=== PATIENT | male | born 1980 | race African-American/Black ===

== ENCOUNTER 2021-11-23 12:37 | Emergency (ER) | payer OTHER, SELFPAY ==
[2021-11-23 12:44] VITALS: BP 104/80; PULSE 96; RESP 18; TEMP 36.7; O2SAT 100; BMI 32.5
--- NOTE | 2021-11-23 13:09 | ED_ITS ---
HPI - General Adult General Chief complaint: Psychiatric Symptoms Stated complaint: cirsis Time Seen by Provider: 11/23/21 13:09 Source: patient Mode of arrival: ambulatory Limitations: no limitations History of Present Illness HPI narrative: Patient is a 41 year old male presenting to the emergency department today expressing he is not being taken care of appropriately at the [facility]. Patient states that the staff is baiting him into verbal arguments and not taking him to his appointments. Patient denies any dizziness, lightheadedness, abdominal pain, nausea, vomiting, fever, chills, blurry vision, double vision, loss of vision, chest pain, difficulty breathing, shortness of breath, back pain, night sweats, pain with urination, increased urinary frequency, increased urinary urgency, blood in his urine or stool, syncope or a near syncopal episode, recent trauma or falls, bowel incontinence, bladder incontinence, bowel retention, bladder retention, or any other complaints at this time. Patient denies any homicidal or suicidal ideation. Onset (ago): week(s) Severity: mild Severity scale (1-10): 1 Relieving factors: none Exacerbating factors: none Associated symptoms: denies other symptoms Treatments prior to arrival: none Related Data Home Medications Medication Instructions Recorded Confirmed insulin lispro 100 unit/mL subcut 07/30/21 10/19/21 subcutaneous solution (Humalog U-100 Insulin) methadone 10 mg/mL oral concentrate 65 mg PO DAILY 07/30/21 10/19/21 Previous Rx's Medication Instructions Recorded clonidine HCl 0.2 mg tablet 0.2 mg PO TID PRN anxiety 30 days 07/30/21 #90 tabs escitalopram oxalate 20 mg tablet 20 mg PO DAILY 30 days #30 tabs 07/30/21 gabapentin 800 mg tablet 800 mg PO TID 30 days #90 tabs 07/30/21 insulin glargine 100 unit/mL (3 40 unit (0.4 mL) subcut BEDTIME 30 07/30/21 mL) subcutaneous pen (Lantus days #12 mL Solostar U-100 Insulin) insulin lispro 100 unit/mL 14 unit (0.14 mL) subcut TID 30 07/30/21 subcutaneous pen (Humalog KwikPen days #12.6 mL (U-100) Insulin) mupirocin 2 % topical ointment 1 appl topical TID 10 days #08/14/21 grams clonazepam 1 mg tablet 1 mg PO BID PRN anxiety 30 days 10/22/21 #60 tabs dextroamphetamine-amphetamine ER 25 mg PO BID 30 days #60 caps 10/22/21 25 mg 24hr capsule,extend release (Adderall XR) ibuprofen 600 mg tablet 600 mg PO Q6H PRN pain 30 days 10/29/21 #120 tabs Allergies Allergy/AdvReac Type Severity Reaction Status Date / Time buprenorphine [From Suboxone] Allergy Mild Swelling Verified 10/19/21 13:30 naloxone [From Suboxone] Allergy Mild Swelling Verified 10/19/21 13:30 Review of Systems Constitutional: Constitutional: Reports no additional constitutional complaints, Denies chills, Denies fever(s) and Denies night sweats Eyes: Eyes: Reports no additional eye complaints, Denies blurry vision, Denies change in vision, Denies diplopia, Denies eye discharge, Denies loss of vision and Denies eye pain ENT: Denies dizziness Cardiovascular: Cardiovascular: Reports no additional cardiovascular complaints, Denies chest pain, Denies lightheadedness, Denies Loss of Consciousness and Denies dyspnea Respiratory: Respiratory: Reports no additional respiratory complaints and Denies dyspnea Gastrointestinal: Gastrointestinal: Reports no additional gastrointestinal complaints, Denies abdominal pain, Denies melena, Denies hematochezia, Denies change in bowel habits and Denies change in stool character Genitourinary: Genitourinary: Reports no additional male genitourinary complaints, Denies hematuria, Denies oliguria, Denies difficulty urinating, Denies dysuria, Denies urinary frequency, Denies urinary hesitancy, Denies urina ry incontinence and Denies urinary urgency Musculoskeletal: Musculoskeletal: Reports no additional musculoskeletal complaints, Denies numbness and Denies tingling Neurologic: Denies dizziness, Denies loss of vision, Denies numbness and Denies tingling Psychiatric: Psychiatric: Reports no additional psychiatric complaints Endocrine: Endocrine: Reports no additional endocrine complaints Hematologic/Lymphatic: Hematologic/Lymphatic: Reports no additional hematologic/lymphatic complaints Allergic/Immunologic: Allergic/Immunologic: Reports no additional allergic/immunologic complaints PMFSH Past Medical History Attestation statement: The following information was validated with the patient. Source: old records reviewed Medical History ADD (attention deficit disorder) Anxiety Diabetes mellitus Diabetic neuropathy Obesity (BMI 30-39.9) Opioid use disorder Smoker Surgical History H/O knee surgery Family History Family History Mother No problems noted. Father Diabetes Parkinson disease Other Mental health problem Substance abuse Social History Social History Housing: Assisted Living Facility Alcohol intake: unknown Patient Tobacco Use Status: Current everyday Tobacco user Cigarettes Per Day: 6 Smoked in Last 30 Days: No e-Cigarette/Vaping Use: Never Used Second Hand Smoke Exposure: Yes Advance Directives: No Advance Directives Information Provided: Yes service: No Current occupational status: disabled Cognitive needs: No Hearing needs: No Vision needs: Yes Physical Exam ED Vital Signs: Vital Signs - 24 hr 11/23/21 12:44 Temperature 98.1 F Pulse Rate 96 Respiratory Rate 18 Blood Pressure 104/80 Pulse Oximetry 100 Oxygen Delivery Method Room Air BMI result Body Mass Index 32.5 Const General: cooperative, no acute distress, alert and awake Nutritional Appearance: well nourished Orientation/consciousness: patient oriented x3 Limitations: no limitations HENMT Head: Yes normal to inspection and Yes atraumatic Ears: hearing grossly normal bilaterally and external ears normal General nose exam: Normal external nose present, no nasal discharge noted and no epistaxis Face and sinus: Yes normal facial exam, No abrasion and No laceration Mouth: Normal oral and palatal mucosa present, no drooling and no muffled voice Eyes General: appearance normal, both eyes and all related structures Periorbital: periorbital findings normal Eyelids: Yes eyelids normal Conjunctivae: conjunctivae normal Pupils: Equal, round and reactive pupils present EOM: EOMs intact bilaterally Neck Neck: Yes normal visual inspection, Yes full ROM and Yes no lymphadenopathy Chest Chest palpation & inspection: normal inspection of the chest Resp Effort & Inspection: normal respiratory effort and able to speak in complete sentences Auscultation: clear to auscultation bilaterally Cardio Rate: regular rate Rhythm: regular rhythm GI Inspection: Yes normal to inspection Neuro General: patient oriented x3 and moves all extremities Cranial nerves: Yes Equal, round and reactive pupils present Cognition (Neuro): normal cognition Motor exam (neuro): 5/5 motor strength present throughout Sensory Exam: Normal double simultaneous stimulation for sensation Coordination: [id number] test normal Extrem General: Yes normal to inspection, Yes full ROM and Yes capillary refill normal Psych Appearance: grossly normal Mental Status: mental status grossly normal Affect: normal affect Attitude: cooperative Thought process: Normal thought process present Thought content: Normal thought content present Insight: Good insight present (Psych) Medical Decision Making MDM Narrative Medical decision making narrative: Patient is a 41 year old male presenting to the emergency department today requesting placement elsewhere from the [facility]. Patient's physical exam was unremarkable. Patient refused to give a urine sample. I explained my physical exam findings to the patient. I answered all questions asked by the patient. CARE team spoke to the patient and together, they decided his best course of action currently is to go back to the [facility]. I stressed the importance of the patient taking his medication as prescribed. I stressed the importance of the patient following up with his primary care provider. I stressed the importance of the patient returning to the emergency department immediately if his symptoms were to worsen or if he were to develop any dizziness, shortness of breath, difficulty breathing, chest pain, blurry vision, loss of vision, nausea, vomiting, abdominal pain, fever, chills, back pain, or any other complaints. Patient verbalized agreement and understanding with this treatment plan and discharge. Medical Records Medical records reviewed: Yes I reviewed the patient's medical records. Discharge Plan Discharge Clinical Impression: Emotional crisis Patient Disposition: Home, Self-Care Instructions: Stress (ED) Additional Instructions: Follow up with your primary care provider. Return to the emergency department immediately if your symptoms worsen or if you develop any dizziness, shortness of breath, difficulty breathing, chest pain, blurry vision, loss of vision, nausea, vomiting, abdominal pain, fever, chills, back pain, or any other complaints. Prescriptions: No Action clonazepam 1 mg tablet 1 mg PO BID PRN (Reason: anxiety) 30 Days Qty: 60 0RF dextroamphetamine-amphetamine [Adderall XR] 25 mg capsule,extended release 24hr 25 mg PO BID 30 Days Qty: 60 0RF Rx Instructions: Partial Fill upon patient request ibuprofen 600 mg tablet 600 mg PO Q6H PRN (Reason: pain) 30 Days Qty: 120 2RF Rx Instructions: Take with food insulin lispro [Humalog U-100 Insulin] 100 unit/mL solution subcut clonidine HCl 0.2 mg tablet 0.2 mg PO TID PRN (Reason: anxiety) 30 Days Qty: 90 3RF escitalopram oxalate 20 mg tablet 20 mg PO DAILY 30 Days Qty: 30 3RF gabapentin 800 mg tablet 800 mg PO TID 30 Days Qty: 90 2RF Lantus Solostar U-100 Insulin 100 unit/mL (3 mL) insulin pen 40 unit subcut BEDTIME 30 Days Qty: 12 3RF insulin lispro [Humalog KwikPen Insulin] 100 unit/mL insulin pen 14 unit subcut TID 30 Days Qty: 12.6 3RF Rx Instructions: dose 3 times a day with meals per sliding scale methadone 10 mg/mL concentrate 65 mg PO DAILY Label Comments: [facility] mupirocin 2 % ointment 1 appl topical TID 10 Days Qty: 22 1RF Referrals: Lucas Wu MD [Primary Care Provider] - Interventions: ED Discharge Assessment Last Done: 11/23/21 17:04 Discharge Date/Time: 11/23/21 17:19 Print Language: Egyptian
--- NOTE | 2021-11-23 16:30 | PC.NURSE ---
Pt continues to refuse to provide UA/SINCLAIR for screening-Adeline from Care team to eval.
--- NOTE | 2021-11-23 17:06 | MHC.CARE ---
CARE Team meets with pt after receiving a consult, siting that pt is requesting a new placement. Pt states that he came to [facility] today from his PCP office in order to request assistance in finding a new placement. [facility] where he has been for the past 5 months. He identifies that he has been sober for a year and is in [facility] for support with mental health, sobriety, and setting up resources so he can live independently in the community. He is originally from the [facility]. Pt is not initially forthcoming with information, however eventually reports that he is getting kicked out of the [facility] on 12/06/21. Pt identifies that he has a [facility] worker who has offered him a new program, but he was hesitant to take it because the program is primarily for [place]ritre[place] speakers. CARE Team engages pt in solution focused intervention to use community resources available to him, such as the living room, as pt was initially refusing to return to the senior care. Pt was asked by nurse in triage and by Pod nurse if he was feeling suicidal and denied. In response to CARE Team saying they cannot immediately change pt's program, he endorsed SI, saying he could overtake his insulin with very vague intent. Prior to making this statement pt was goal focused and future oriented, talking about regaining custody of his children. When asked, pt confirms that he made SI statement in the hopes of being psychiatrically admitted so they can change his program. CARE Team educated pt that dual programs have long waitlists and there could be a gap between this program and the next if he does not work with DM to tranfer to the program he is being told is available. Suicidality is in the context of uncertainty surrounding housing. CARE Team places call to the [facility] who agrees that pt can and should return to their program and they agree to send staff to pick pt up. CARE Team educates pt about community crisis services, offering [facility] crisis line, which pt confirms he already has access to. Pt also provides education about program such as the living room in the event that pt needs supports/resources outside of his current program and [facility]. CARE Team discusses plan for discharge with SHANTAL Chilel.
== END 2021-11-23 17:19 | disposition home or self-care (01) ==
PROVIDERS: Emergency Provider Student in an Organized Health Care Education/Training Program; PCP Internal Medicine
DX: F43.0 Acute stress reaction (principal); Z79.899 Other long term (current) drug therapy
CPT/HCPCS: 99284

== ENCOUNTER → 2021-11-30 14:37 | Outpatient (BNVA) | payer OTHER, SELFPAY | PROVIDERS: PCP Internal Medicine; Referring Provider Internal Medicine; Visit Provider Surgery | DX: K43.9 Ventral hernia without obstruction or gangrene (principal); E66.9 Obesity, unspecified; F11.90 Opioid use, unspecified, uncomplicated; F98.8 Other specified behavioral and emotional disorders with onset usually occurring in childhood and adolescence; E10.40 Type 1 diabetes mellitus with diabetic neuropathy, unspecified; F17.210 Nicotine dependence, cigarettes, uncomplicated; Z68.31 Body mass index [BMI] 31.0-31.9, adult | CPT/HCPCS: 99202 ==

== ENCOUNTER 2021-12-06 17:09 | Inpatient (IN) | payer OTHER, SELFPAY ==
--- NOTE | ~2021-12-06 | XR_ITS ---
EXAMINATION: XR CHEST CLINICAL INFORMATION: Leukocytosis COMPARISON: None TECHNIQUE: Frontal view of the chest was obtained. FINDINGS: No significant abnormality is noted involving the heart, lungs, mediastinum, bony thorax or soft tissues. XR/XR chest 1V IMPRESSION: Unremarkable examination.
[2021-12-06 17:35] VITALS: BP 131/94; PULSE 111; RESP 19; TEMP 36.6; O2SAT 98; BMI 31.8
--- NOTE | 2021-12-06 18:11 | PC.NURSE ---
Clonazepam, methadone, and adderall sealed in envelope and placed in pt locker. Plan is to send to pharmacy should pt become a bedsearch. Fiona relief charge nurse aware.
--- NOTE | 2021-12-06 18:14 | ECG_ITS ---
Test Reason : med clearance Blood Pressure : / mmHG Vent. Rate : 074 BPM Atrial Rate : 074 BPM P-R Int : 182 ms QRS Dur : 092 ms QT Int : 416 ms P-R-T Axes : 037 048 027 degrees QTc Int : 461 ms Normal sinus rhythm Normal ECG No previous ECGs available Referred By: Aleksandra Choudhary Electronically Signed By:AREN GOMEZ
--- NOTE | 2021-12-06 18:35 | ED_ITS ---
HPI - Psych General Chief Complaint: Psychiatric Symptoms Stated Complaint: section 12 Time Seen by Provider: 12/06/21 17:39 Source: patient Mode of arrival: ambulatory History of Present Illness HPI Narrative: 41-year-old male with a past medical history of ADD, anxiety, diabetes, diabetic neuropathy, obesity, opioid use, presenting to ED complaining of increasing depression with suicidal ideations and plan x months. Will not specify plan. Admits to using cocaine today. States he is unhappy with his current living situation & staff members are mean/degrade him, and do not give him his medications properly. Also reports auditory hallucinations. Denies HI, visual hallucinations, EtOH, CP/SOB, abdominal pain MD complaint: suicidal ideation, feels depressed, substance abuse and hallucinations Onset (ago): month(s) Related Data Home Medications Medication Instructions Recorded Confirmed insulin lispro 100 unit/mL 1 sliding scale dose subcut TIDAC 07/30/21 12/06/21 subcutaneous solution (Humalog U-100 Insulin) methadone 10 mg/mL oral concentrate 65 mg PO DAILY 07/30/21 11/30/21 ibuprofen 600 mg tablet 600 mg PO Q6H PRN Pain, Mild 12/06/21 12/06/21 Previous Rx's Medication Instructions Recorded escitalopram oxalate 20 mg tablet 20 mg PO DAILY 30 days #30 tabs 07/30/21 insulin glargine 100 unit/mL (3 40 unit (0.4 mL) subcut BEDTIME 30 07/30/21 mL) subcutaneous pen (Lantus #12 mL Solostar U-100 Insulin) dextroamphetamine-amphetamine ER 25 mg PO BID 30 days #60 caps 10/22/21 25 mg 24hr capsule,extend release (Adderall XR) clonazepam 1 mg tablet 1 mg PO BID PRN anxiety 30 days 11/27/21 #60 tabs gabapentin 800 mg tablet 800 mg PO TID 30 days #90 tabs 11/27/21 clonidine HCl 0.2 mg tablet 0.2 mg PO TID PRN anxiety 30 days 12/04/21 #90 tabs Allergies Allergy/AdvReac Type Severity Reaction Status Date / Time buprenorphine [From Suboxone] Allergy Mild Swelling Verified 11/30/21 14:43 naloxone [From Suboxone] Allergy Mild Swelling Verified 11/30/21 14:43 Review of Systems Review of Systems: Constitutional: No Fever, No Chills, No Fatigue, No Malaise ENT/Mouth: No Ear Pain, No Nasal Congestion, No sore throat, No Rhinorrhea, No Swallowing Difficulty Eyes: No Eye Pain, No Swelling, No Redness Cardiovascular: No Chest Pain, No SOB, No Edema, No Palpitations Respiratory: No Cough, No Dyspnea Gastrointestinal: No Nausea, No Vomiting, No Diarrhea, No Constipation, No Abdominal pain Genitourinary: No Dysuria, No Urinary Frequency, No Hematuria Musculoskeletal: No joint pain, No Myalgias, No Joint Swelling Skin: No Skin Lesions, No rash Neuro: No Weakness, No Numbness, No Paresthesias, No Headache Psych: No Anxiety/Panic, + Depression, + SI, No HI, +AHVH, + Social Issues Yes all other systems are reviewed and are negative Constitutional: Constitutional: Reports as per [facility] Past Medical History Attestation statement: The following information was validated with the patient. Medical History ADD (attention deficit disorder) Anxiety Diabetes mellitus Diabetic neuropathy Obesity (BMI 30-39.9) Opioid use disorder Smoker Surgical History H/O knee surgery Family History Family History Mother No problems noted. Father Diabetes Parkinson disease Other Mental health problem Substance abuse Social History Social History Housing: Assisted Living Facility Alcohol intake: unknown Patient Tobacco Use Status: Current everyday Tobacco user Cigarettes Per Day: 6 e-Cigarette/Vaping Use: Never Used Second Hand Smoke Exposure: Yes Advance Directives: No Advance Directives Information Provided: Yes service: No Current occupational status: disabled Cognitive needs: No Hearing needs: No Vision needs: Yes Physical Exam Vital Signs: Vital Signs: Last Vital Signs Temp 98 F 12/06/21 17:35 Pulse 90 12/06/21 19:58 Resp 16 12/06/21 19:58 BP 97/66 12/06/21 19:58 Pulse Ox 95 12/06/21 19:58 O2 Del Method 12/06/21 19:58 BMI result Body Mass Index 31.8 Const: General: cooperative, comfortable and no acute distress Orientation/consciousness: patient oriented x3 Limitations: no limitations HEENT: Head: Yes normal to inspection and Yes atraumatic Ears: hearing grossly normal bilaterally General nose exam: Normal external nose present Face and sinus: Yes normal facial exam Eyes: General: appearance normal, both eyes and all related structures EOM: EOMs intact bilaterally Neck: Neck: Yes normal visual inspection and Yes no meningeal signs Resp: Effort & Inspection: normal respiratory effort and no respiratory distress Auscultation: clear to auscultation bilaterally, no rales, no rhonchi and no wheezes Cardio: Rate: regular rate and tachycardic Heart sounds: S1 normal heart sound present and S2 normal heart sound present GI: Inspection: Yes normal to inspection Palpation (GI): Soft to palpation, nontender, no guarding and not rigid : General: Yes no CVA tenderness Back/Spine/Pelvis: Back: no CVA tenderness Skin: Rashes: no rashes Wounds: no wounds Neuro: General: patient oriented x3, tone normal, moves all extremities, no meningeal signs and CN's II-XI intact bilaterally Gait exam (Neuro): Normal gait present Extrem: General: Yes normal to inspection Psych: Appearance: grossly normal and well kempt Affect: normal affect Attitude: cooperative Thought process: Normal thought process present Thought content: Suicidality present, Hallucination(s) present and Depressive thoughts present Course Course Course Narrative: -leukocytosis of 14.6 > will obtain CXR and UA. Low suspicion for severe sepsis, no evidence of infection at this time. Labs otherwise unremarkable -2011--CXR unremarkable. Patient is medically cleared for crisis evaluation. Physician observation initiated at 20:12 -2100--ED care transferred to Dr. Ramos pending UA and crisis eval. MDM - Psych MDM Narrative Medical decision making narrative: 41-year-old male with a past medical history of ADD, anxiety, diabetes, diabetic neuropathy, obesity, opioid use, presenting to ED complaining of increasing depression with suicidal ideations and plan x months. On exam mildly tachycardic, NAD, comfortable, nontoxic appearing, lungs CTA, abdomen soft/nontender. Elicit suicidal ideations with vague plan and AH. Concern for substance abuse vs SI. Lower suspicion for infectious etiology Plan: EKG, Labs, tox screen, crisis consult Differential Diagnosis Differential diagnosis: Likely suicidal ideation, depression, acute anxiety and substance abuse Medical Records Attestation: I reviewed the patient's medical records. Lab Data Attestation: I reviewed the patient's lab results. Result diagrams: 12/06/21 18:32 12/06/21 18:32 Labs: Lab Results 12/06/21 12/06/21 12/06/21 Range/Units 18:32 18:32 18:32 WBC 14.6 H (4.8-10.8) X10*3/uL RBC 5.01 (4.60-5.80) X10*6/uL Hgb 13.9 L (14.0-18.0) g/dl Hct 41.8 L (42.0-52.0) % MCV 83.4 (80.0-98.0) fL MCH 27.7 (27.0-33.0) pg MCHC 33.3 (31.0-36.0) g/dl RDW 12.4 (11.0-16.0) % Plt Count 401 H (160-400) X10*3/uL MPV 10.1 (9.4-12.4) fL Immature Gran % (Auto) 0.3 (0.0-0.4) % Neut % (Auto) 79.8 H (45-73) % Lymph % (Auto) 15.7 L (20-40) % [place] % (Auto) 3.6 (2-11) % Eos % (Auto) 0.3 (0-4) % Baso % (Auto) 0.3 (0-2) % Lymph # (Auto) 2.3 (1.2-4.9) X10*3/uL [place] # (Auto) 0.5 (0.1-1.2) X10*3/uL Eos # (Auto) 0.0 (0.0-0.4) X10*3/uL Baso # (Auto) 0.1 (0.0-0.2) X10*3/uL Abs Immat Gran (auto) 0.04 H (0.00-0.03) X10*3/uL Absolute Neuts (auto) 11.6 H (2.0-8.3) x10*3/uL Absolute Nucleated RBC 0.000 (0.0-0.012) X10*3/uL Nucleated RBC % (auto) 0.0 (0.0-0.2) /100WBC Sodium 138 (135-145) mmol/L Potassium 4.8 (3.3-5.1) mmol/L Chloride 102 (96-108) mmol/L Carbon Dioxide 24 (22-29) mmol/L Anion Gap 17 (12-20) BUN 15 (9-16) mg/dL Creatinine 1.17 (0.5-1.4) mg/dL Estim Creat Clear Calc 105.8 Estimated GFR > 60 Random Glucose 124 H (60-115) mg/dL Calcium 10.1 (8.4-10.2) mg/dL Magnesium 1.9 (1.6-2.6) mg/dL Total Bilirubin 0.2 (0.0-1.0) mg/dL Direct Bilirubin < 0.2 (0.0-0.5) mg/dL AST 24 (5-37) U/L ALT 24 (0-40) U/L Alkaline Phosphatase 120 H (39-117) U/L Total Protein 8.0 (6.5-8.0) g/dL Albumin 4.4 (3.5-5.0) g/dL Ethyl Alcohol < 10 mg/dL COVID-19 ([facility]NAZ) Negative (Negative) COVID-19 Clin Com See Note Discharge Plan Discharge Clinical Impression: Suicidal ideations Patient Disposition: Still a Patient Prescriptions: No Action dextroamphetamine-amphetamine [Adderall XR] 25 mg capsule,extended release 24hr 25 mg PO BID 30 Days Qty: 60 0RF Rx Instructions: Partial Fill upon patient request clonazepam 1 mg tablet 1 mg PO BID PRN (Reason: anxiety) 30 Days Qty: 60 0RF gabapentin 800 mg tablet 800 mg PO TID 30 Days Qty: 90 2RF clonidine HCl 0.2 mg tablet 0.2 mg PO TID PRN (Reason: anxiety) 30 Days Qty: 90 3RF ibuprofen 600 mg tablet 600 mg PO Q6H PRN (Reason: Pain, Mild) Rx Instructions: Take with food insulin lispro [Humalog U-100 Insulin] 100 unit/mL solution 1 sliding scale dose subcut TIDAC Protocol: Insulin Correction Scale Less than or equal to 110 ---- Give (units): 0 111 to 150 Give (units): 0 151 to 200 Give (units): 2 201 to 250 Give (units): 4 251 to 300 Give (units): 6 301 to 350 Give (units): 8 Greater than 350 Give (units): 10 Call MD if Blood Glucose > : 350 escitalopram oxalate 20 mg tablet 20 mg PO DAILY 30 Days Qty: 30 3RF Lantus Solostar U-100 Insulin 100 unit/mL (3 mL) insulin pen 40 unit subcut BEDTIME 30 Days Qty: 12 3RF methadone 10 mg/mL concentrate 65 mg PO DAILY Label Comments: [facility]
[2021-12-06 18:37] LABS: MANUAL DIFF FLAG NO
[2021-12-06 18:38] LABS: Basophils Absolute Auto 0.1 X10*3/uL (0.0-0.2); Basophils Percent Auto 0.3 % (0-2); Eosinophils Percent Auto 0.3 % (0-4); Hematocrit 41.8 % (42.0-52.0); Hemoglobin 13.9 g/dl (14.0-18.0); Imm Gran Abs Auto 0.04 X10*3/uL (0.00-0.03); Imm Gran Pct Auto 0.3 % (0.0-0.4); Lymphocytes Absolute Auto 2.3 X10*3/uL (1.2-4.9); Lymphocytes Percent Auto 15.7 % (20-40); Mean Corpuscular HGB Conc 33.3 g/dl (31.0-36.0); Mean Corpuscular Hemoglobin 27.7 pg (27.0-33.0); Mean Corpuscular Volume 83.4 fL (80.0-98.0); Mean Platelet Volume 10.1 fL (9.4-12.4); Monocytes Absolute Auto 0.5 X10*3/uL (0.1-1.2); Monocytes Percent Auto 3.6 % (2-11); Neutrophils Absolute Auto 11.6 x10*3/uL (2.0-8.3); Neutrophils Percent Auto 79.8 % (45-73); Platelet Count 401 X10*3/uL (160-400); Red Blood Count 5.01 X10*6/uL (4.60-5.80); Red Cell Distribution Width 12.4 % (11.0-16.0); White Blood Count 14.6 X10*3/uL (4.8-10.8)
[2021-12-06 18:53] LABS: COVID-19 Test Negative (Negative); IDNOW Serial# 55D5AD1C
[2021-12-06 18:58] LABS: Alanine Aminotransferase 24 U/L (0-40); Albumin Level 4.4 g/dL (3.5-5.0); Alkaline Phosphatase 120 U/L (39-117); Anion Gap 17 (12-20); Aspartate Amino Transferase 24 U/L (5-37); Bilirubin Direct < 0.2 mg/dL (0.0-0.5); Bilirubin Total 0.2 mg/dL (0.0-1.0); Blood Urea Nitrogen 15 mg/dL (9-16); Calcium 10.1 mg/dL (8.4-10.2); Carbon Dioxide 24 mmol/L (22-29); Chloride 102 mmol/L (96-108); Creatinine Clr Calc Pharmacy 105.8; Estimated Glomerular Filt Rate > 60; Ethanol < 10 mg/dL; Glucose Random 124 mg/dL (60-115); Magnesium 1.9 mg/dL (1.6-2.6); Potassium 4.8 mmol/L (3.3-5.1); Sodium 138 mmol/L (135-145)
[2021-12-06 19:58] VITALS: BP 97/66; PULSE 90; RESP 16; O2SAT 95
[2021-12-06 22:41] VITALS: BP 103/64; PULSE 79; RESP 16; TEMP 36.6; O2SAT 97
[2021-12-06 22:44] LABS: Glucose, Whole Blood 106 mg/dL (60-115)
[2021-12-07 01:26] VITALS: BP 108/72; PULSE 88; RESP 16; TEMP 37.1; O2SAT 97
--- NOTE | 2021-12-07 06:34 | PC.NURSE ---
Patient slept through the night, no distress observed/reported, disposition per [facility] is section 12 inpatient bed search, behavior non concerning, med rec completed/MAR updated, pending urine sample, POC at 0630 was 172, VSS, will continue to monitor.
--- NOTE | 2021-12-07 07:12 | HE.PHANOTE ---
Methadone Verification Pharmacy has received the methadone verification form from [facility]. Patient last receive methadone 65 mg on 12/06/21 at [facility]. Confirmed with CONNER Morrell. Sadia Osborne, Abby
--- NOTE | 2021-12-07 07:35 | PC.NURSE ---
patient appears to remain asleep at present respirations are even and unlabored patient appears in no distress
[2021-12-07] MEDS: methADONE HCl 20 MG/2 ML ORAL.CONC 65 MG PO (08:08)
[2021-12-07] MEDS: Gabapentin 400 MG CAPSULE 800 MG PO ×3 (08:08→21:14)
[2021-12-07] MEDS: Insulin Lispro 100 UNIT/ML 3 ML VIAL SUBCUT (08:08)
[2021-12-07 09:04] LABS: Appearance Urine Hazy; Color Urine Yellow; Glucose Urine UA Negative (Negative); Leukocyte Esterase Urine Negative (Negative); Nitrite Urine Negative (Negative); Specific Gravity - Urine >= 1.030 (1.005-1.025); Urine Blood Negative (Negative); Urine Ketones Trace mg/dL (Negative); Urine Protein Negative (Neg-Trace)
[2021-12-07] MEDS: Dextroamphetamine/Amphetamine XR 5 MG CAP.ER.24H PO (09:17)
[2021-12-07] MEDS: Dextroamphetamine/Amphetamine XR 10 MG CAP.ER.24H 20 MG PO (09:17)
[2021-12-07] MEDS: cloNIDine HCL 0.2 MG TABLET PO ×3 (09:17→21:20)
[2021-12-07] MEDS: clonazePAM 1 MG TABLET PO ×2 (09:18→21:20)
[2021-12-07 09:24] LABS: Amphetamine Screen Urine POSITIVE (Not Detect); Barbiturates, Urine Not Detected (Not Detect); Benzodiazepines Screen Urine POSITIVE (Not Detect); Cannabinoid Screen Urine Not Detected (Not Detect); Cocaine Screen Urine POSITIVE (Not Detect); Fentanyl, urine Not Detected (Not Detect); Opiate Screen Urine Not Detected (Not Detect); Phencyclidine Screen Urine Not Detected (Not Detect)
[2021-12-07 11:40] VITALS: BP 128/89; PULSE 88; RESP 18; TEMP 36.6; O2SAT 96
[2021-12-07 12:22] LABS: Glucose, Whole Blood 122 mg/dL (60-115)
--- NOTE | 2021-12-07 13:39 | MHC.CLN ---
Addendum entered by Zoraida Obregon, DAPHNE 12/07/21 15:04: DIET CHANGED TO REGULAR PER PROVIDER. Original Note: NUTRITION DIET CHANGED TO DIABETIC 2200 KCAL. HAS DX DM AND DIABETIC POLYNEUROPATHY. TAKES DM MEDS. SIGNIFICANT WEIGHT LOSS X 4 MONTHS, -14.6%. REVIEW OF PRIMARY CARE PHYSICIAN NOTES SHOWS WEIGHT LOSS PLANNED AND DESIRABLE. PATIENT AVOIDING UNHEALTHY FOODS AND INCREASED ACTIVITY. NO NEW NUTRITION INTERVENTIONS AT THIS TIME. CONTINUE DIABETIC 2200KCAL DIET.
[2021-12-07 17:00] VITALS: BP 112/68; PULSE 88; RESP 16; O2SAT 96
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
--- NOTE | 2021-12-07 17:24 | PC.NURSE ---
Geovani Mendez is a 41 yo male admitted to M3 on CV from [facility] for [place]ic[place]. Per patient his divorce and separation from his child 4 years ago and his recent negative experience in the [facility] have left him feeling hopeless with thoughts to overdose on his prescribed insulin to end his life. He was administratively discharged from his residential program and is currently homeless without providers. He used cocaine yesterday following a 1 year period of abstinence. He reports no heroin for 3 years ( on methadone) and no alcohol for over one year. He admits to using marijuana. He has complex medical issues including diabetes, neuropathic pain in bilateral feet and right knee, hx of seizures and recent 95 lb weight loss over 4 months. On arrival to the unit he is negatively focused, irritable about unit restrictions regarding sharps, electronics, uncomfortable bed, medication changes, etc. He arrived on the unit with a walking stick which he claimed to need to ambulate. However, a martial arts manual in his belongings with instructions on using the stick as a weapon was found and the stick is now in belongings closet. He was given a cane which he declined and appears to be ambulating without difficulty. Patient is placed on 5 min checks for safety due to wearing headscarf for mandaeism reasons. Patient reports hearing voices that he finds helpful and denies other hallucinations. He denies ideation, plan or intent to harm self or others at present. POC on arrival to unit is 121. VSS.
[2021-12-07 21:13] VITALS: BP 115/70; PULSE 88; RESP 16; TEMP 36.3; O2SAT 96
[2021-12-08 08:35] LABS: Estimated Average Glucose 163 mg/dL; Hemoglobin A1c % 7.3 %
[2021-12-08 08:56] LABS: Alanine Aminotransferase 19 U/L (0-40); Albumin Level 3.9 g/dL (3.5-5.0); Alkaline Phosphatase 104 U/L (39-117); Anion Gap 14 (12-20); Aspartate Amino Transferase 17 U/L (5-37); Bilirubin Total 0.2 mg/dL (0.0-1.0); Blood Urea Nitrogen 15 mg/dL (9-16); Calcium 9.3 mg/dL (8.4-10.2); Carbon Dioxide 29 mmol/L (22-29); Chloride 102 mmol/L (96-108); Cholesterol 196 mg/dL; Creatinine Clr Calc Pharmacy 123.8; Estimated Glomerular Filt Rate > 60; Glucose Fasting 138 mg/dL (60-99); HDL Cholesterol 24 mg/dL; LDL Cholesterol Calculated 132 mg/dl; Potassium 4.6 mmol/L (3.3-5.1); Sodium 140 mmol/L (135-145); Triglycerides 201 mg/dL
[2021-12-08 08:58] LABS: Thyroid Stimulating Hormone 1.16 uIU/mL (0.32-4.0)
[2021-12-08 09:00] VITALS: BP 133/61; PULSE 82; RESP 18; TEMP 36.4; O2SAT 99
[2021-12-08] MEDS: Gabapentin 400 MG CAPSULE 800 MG PO ×3 (09:06→20:45)
[2021-12-08] MEDS: methADONE HCl 20 MG/2 ML ORAL.CONC 65 MG PO (09:06)
[2021-12-08] MEDS: DULoxetine HCl 60 MG CAPSULE.DR PO (09:06)
[2021-12-08] MEDS: clonazePAM 1 MG TABLET PO ×2 (09:12→20:45)
[2021-12-08] MEDS: cloNIDine HCL 0.2 MG TABLET PO ×3 (09:12→20:45)
[2021-12-08 09:14] LABS: Folate 15.9 ng/mL (> or = 4.0); Vitamin B12 709 pg/mL (200-900)
--- NOTE | 2021-12-08 09:27 | HO.PSYCHPN ---
Subjective Subjective Date of Service: 12/08/21 Reason For Visit: SI Subjective Notes: [place] Warning and Conditional Voluntary Healthcare Proxy: No Guardianship: No Medical Problems Affecting Mental Status: No Interim History: Pt reports it is hard for me to focus without adderall, has been reading the same page forever. Hasnt noticed anything on duloxetine, denies adverse effects. He is still sad, trying to figure out what to do, feels lost. Pt endorses AH, says his voices can sometimes be antagonizing, sometimes they can be right. Notices his dreams are victor manuel bad, utilizing clonidine. Says when he leaves the hospital, he plans to rely on adderall and cannabis to treat his sx of depression and ptsd, also willing to give duloxetine a fair trial. He doesnt want an antipsychotic trial due to previous wt gain on seroquel. Medication Compliance: Yes Side effects from medications: No Attending Groups: Intermittent Review of Systems Acute medical concerns: No Medical Review of Systems: unchanged Mental Status Exam Mental Status Exam Narrative: A&O. Large frame, overweight, wearing head scarf, casual attire, okay grooming/ hygiene. Poor eye contact, attentive. No Tics or Tremors. No abnormal involuntary movements. Agitated but ultimately cooperative, engaged. Non-pressured speech, spontaneous with regular rate and rhythm, normal volume and prosody. No prolonged speech latency or dysarthria. Mood is ?depressed,? affect is congruent. Endorses passive SI with plan but no intent/ Denies SIB/HI upon inquiry. Endorses AH, derogatory in nature. Deneis VH or delusional thought content. Thoughts are ruminative. No known cognitive or memory impairment. Insight/ Judgment limited but adequate. Diagnostics Vital Signs (24Hr): Vital Signs - 24 hr 12/07/21 17:00 12/07/21 11:40 12/07/21 21:13 Temperature 97.9 F 97.4 F Pulse Rate 88 88 88 Respiratory Rate 16 18 16 Blood Pressure 112/68 128/89 115/70 Pulse Oximetry 96 96 96 Oxygen Delivery Method Room Air Room Air BMI result Body Mass Index 31.8 Labs Results: 12/06/21 18:32 12/08/21 08:13 Labs: Laboratory Results - last 48 hr 12/06/21 12/06/21 12/06/21 18:32 18:32 18:32 WBC 14.6 H RBC 5.01 Hgb 13.9 L Hct 41.8 L MCV 83.4 MCH 27.7 MCHC 33.3 RDW 12.4 Plt Count 401 H MPV 10.1 Immature Gran % (Auto) 0.3 Neut % (Auto) 79.8 H Lymph % (Auto) 15.7 L [place] % (Auto) 3.6 Eos % (Auto) 0.3 Baso % (Auto) 0.3 Lymph # (Auto) 2.3 [place] # (Auto) 0.5 Eos # (Auto) 0.0 Baso # (Auto) 0.1 Abs Immat Gran (auto) 0.04 H Absolute Neuts (auto) 11.6 H Absolute Nucleated RBC 0.000 Nucleated RBC % (auto) 0.0 Sodium 138 Potassium 4.8 Chloride 102 Carbon Dioxide 24 Anion Gap 17 BUN 15 Creatinine 1.17 Estim Creat Clear Calc 105.8 Estimated GFR > 60 POC Glucose Random Glucose 124 H Fasting Glucose Estimat Average Glucose Hemoglobin A1c % Calcium 10.1 Magnesium 1.9 Total Bilirubin 0.2 Direct Bilirubin < 0.2 AST 24 ALT 24 Alkaline Phosphatase 120 H Total Protein 8.0 Albumin 4.4 Triglycerides Cholesterol LDL Cholesterol, Calc HDL Cholesterol Vitamin B12 Folate TSH Urine Color Urine Appearance Urine pH Ur Specific [place] Urine Protein Urine Glucose (UA) Urine Ketones Urine Blood Urine Nitrite Ur Leukocyte Esterase Urine Opiates Screen Urine Fentanyl Screen Ur Barbiturates Screen Ur Phencyclidine Scrn Ur Amphetamines Screen U Benzodiazepines Scrn Urine Cocaine Screen U Marijuana (THC) Screen Ethyl Alcohol < 10 COVID-19 ([facility]) Negative COVID-19 Clin Com See Note 12/06/21 12/07/21 12/07/21 22:40 08:57 08:57 WBC RBC Hgb Hct MCV MCH MCHC RDW Plt Count MPV Immature Gran % (Auto) Neut % (Auto) Lymph % (Auto) [place] % (Auto) Eos % (Auto) Baso % (Auto) Lymph # (Auto) [place] # (Auto) Eos # (Auto) Baso # (Auto) Abs Immat Gran (auto) Absolute Neuts (auto) Absolute Nucleated RBC Nucleated RBC % (auto) Sodium Potassium Chloride Carbon Dioxide Anion Gap BUN Creatinine Estim Creat Clear Calc Estimated GFR POC Glucose 106 Random Glucose Fasting Glucose Estimat Average Glucose Hemoglobin A1c % Calcium Magnesium Total Bilirubin Direct Bilirubin AST ALT Alkaline Phosphatase Total Protein Albumin Triglycerides Cholesterol LDL Cholesterol, Calc HDL Cholesterol Vitamin B12 Folate TSH Urine Color Yellow Urine Appearance Hazy Urine pH 6.0 Ur Specific [place] >= 1.030 H Urine Protein Negative Urine Glucose (UA) Negative Urine Ketones Trace Urine Blood Negative Urine Nitrite Negative Ur Leukocyte Esterase Negative Urine Opiates Screen Not Detected Urine Fentanyl Screen Not Detected Ur Barbiturates Screen Not Detected Ur Phencyclidine Scrn Not Detected Ur Amphetamines Screen POSITIVE H U Benzodiazepines Scrn POSITIVE H Urine Cocaine Screen POSITIVE H U Marijuana (THC) Screen Not Detected Ethyl Alcohol COVID-19 ([facility]) COVID-[employer] 12/07/21 12/08/21 12/08/21 12:17 08:13 08:13 WBC RBC Hgb Hct MCV MCH MCHC RDW Plt Count MPV Immature Gran % (Auto) Neut % (Auto) Lymph % (Auto) [place] % (Auto) Eos % (Auto) Baso % (Auto) Lymph # (Auto) [place] # (Auto) Eos # (Auto) Baso # (Auto) Abs Immat Gran (auto) Absolute Neuts (auto) Absolute Nucleated RBC Nucleated RBC % (auto) Sodium 140 Potassium 4.6 Chloride 102 Carbon Dioxide 29 Anion Gap 14 BUN 15 Creatinine 1.00 Estim Creat Clear Calc 123.8 Estimated GFR > 60 POC Glucose 122 H Random Glucose Fasting Glucose 138 H Estimat Average Glucose 163 Hemoglobin A1c % 7.3 Calcium 9.3 D Magnesium Total Bilirubin 0.2 Direct Bilirubin AST 17 ALT 19 Alkaline Phosphatase 104 Total Protein 7.0 Albumin 3.9 Triglycerides 201 Cholesterol 196 LDL Cholesterol, Calc 132 HDL Cholesterol 24 Vitamin B12 Folate TSH 1.16 Urine Color Urine Appearance Urine pH Ur Specific [place] Urine Protein Urine Glucose (UA) Urine Ketones Urine Blood Urine Nitrite Ur Leukocyte Esterase Urine Opiates Screen Urine Fentanyl Screen Ur Barbiturates Screen Ur Phencyclidine Scrn Ur Amphetamines Screen U Benzodiazepines Scrn Urine Cocaine Screen U Marijuana (THC) Screen Ethyl Alcohol COVID-19 ([facility]Z) COVID-[employer] 12/08/21 08:13 WBC RBC Hgb Hct MCV MCH MCHC RDW Plt Count MPV Immature Gran % (Auto) Neut % (Auto) Lymph % (Auto) [place] % (Auto) Eos % (Auto) Baso % (Auto) Lymph # (Auto) [place] # (Auto) Eos # (Auto) Baso # (Auto) Abs Immat Gran (auto) Absolute Neuts (auto) Absolute Nucleated RBC Nucleated RBC % (auto) Sodium Potassium Chloride Carbon Dioxide Anion Gap BUN Creatinine Estim Creat Clear Calc Estimated GFR POC Glucose Random Glucose Fasting Glucose Estimat Average Glucose Hemoglobin A1c % Calcium Magnesium Total Bilirubin Direct Bilirubin AST ALT Alkaline Phosphatase Total Protein Albumin Triglycerides Cholesterol LDL Cholesterol, Calc HDL Cholesterol Vitamin B12 709 Folate 15.9 TSH Urine Color Urine Appearance Urine pH Ur Specific [place] Urine Protein Urine Glucose (UA) Urine Ketones Urine Blood Urine Nitrite Ur Leukocyte Esterase Urine Opiates Screen Urine Fentanyl Screen Ur Barbiturates Screen Ur Phencyclidine Scrn Ur Amphetamines Screen U Benzodiazepines Scrn Urine Cocaine Screen U Marijuana (THC) Screen Ethyl Alcohol COVID-19 ([facility]) COVID-19 Clin Com Imaging Radiology Impressions: ITS Impressions Chest X-Ray 12/06/21 19:30 IMPRESSION: Unremarkable examination. Medications Medications Current Medications Acetaminophen (Acetaminophen 325 Mg Tablet) 650 mg PO Q6H PRN PRN Reason: Headache/Pain Mild Scale (1-3) Al Hydroxide/Mg Hydroxide (Magnesium Hydrox/Alum Hydrox 30 Ml Oral.Susp) 30 ml PO Q6H PRN PRN Reason: Heartburn/Nausea Clonazepam (Clonazepam 1 Mg Tablet) 1 mg PO BID PRN PRN Reason: anxiety Last Admin: 12/08/21 09:12 Dose: 1 mg Clonidine HCl (Clonidine Hcl 0.2 Mg Tablet) 0.2 mg PO TID PRN; Protocol PRN Reason: anxiety Last Admin: 12/08/21 09:12 Dose: 0.2 mg Duloxetine HCl (Duloxetine Hcl 60 Mg Capsule.Dr) 60 mg PO DAILY [facility] Last Admin: 12/08/21 09:06 Dose: 60 mg Gabapentin (Gabapentin 400 Mg Capsule) 800 mg PO TID [facility] Last Admin: 12/08/21 09:06 Dose: 800 mg Hydroxyzine HCl (Hydroxyzine Hcl 25 Mg Tablet) 25 mg PO Q6H PRN PRN Reason: Anxiety Ibuprofen (Ibuprofen 600 Mg Tablet) 600 mg PO Q6H PRN PRN Reason: Pain, Mild Insulin Glargine (Insulin Glargine,Hum.Rec.Anlog 100 Unit/Ml 10 Ml Vial) 40 unit SUBCUT BEDTIME [facility] Last Admin: 12/07/21 21:20 Dose: Not Given Insulin Human Lispro (Insulin Lispro 100 Unit/Ml 3 Ml Vial) 0 unit SUBCUT TIDAC [facility]; Protocol Last Admin: 12/07/21 18:16 Dose: Not Given Magnesium Hydroxide (Milk Of Magnesia 30 Ml Oral.Susp) 30 ml PO DAILY PRN PRN Reason: Constipation Methadone HCl (Methadone Hcl 20 Mg/2 Ml Oral.Conc) 65 mg PO DAILY [facility] Last Admin: 12/08/21 09:06 Dose: 65 mg Nicotine Polacrilex (Nicotine Polacrilex 2 Mg Gum) 2 mg BUCCAL Q1H PRN PRN Reason: Nicotine Cravings Pharmacy Consult (Consult Rx Perform Med Rec) 1 each MISCELLANE ONCE PRN PRN Reason: Consult order Trazodone HCl (Trazodone Hcl 50 Mg Tablet) 50 mg PO BEDTIME PRN PRN Reason: Insomnia Allergies Allergies Allergy/AdvReac Type Severity Reaction Status Date / Time buprenorphine [From Suboxone] Allergy Mild Swelling Verified 11/30/21 14:43 naloxone [From Suboxone] Allergy Mild Swelling Verified 11/30/21 14:43 Assessment & Plan Assessment & Plan (1) ADHD (attention deficit hyperactivity disorder): Status: Acute Code(s): F90.9 - Attention-deficit hyperactivity disorder, unspecified type (2) MDD (major depressive disorder), recurrent, severe, with psychosis: Status: Acute Code(s): F33.3 - Major depressive disorder, recurrent, severe with psychotic symptoms (3) Post traumatic stress disorder (PTSD): Status: Acute Code(s): F43.10 - Post-traumatic stress disorder, unspecified Plan Geovani is a 41 y.o. male who carries a dx of ADHD, MDD with psychotic features, PTSD, cocaine use disorder, and opioid use disorder (abstinent, on methadone). Pt has co-morbid insulin dependent diabetes, diabetic neuropathy, and obesity. He presented to [facility] on 12/06/21 due to increased depression and SI with plan to overdose on his insulin. Utox positive for cocaine. Stressors include that pt was recently kicked out of the [facility] program due to disagreements with staff. He has housing instability, long hx of homelessness. Denies hx of IPLOC. No current OP psych services. Plan: Will hold adderall 25 mg BID during admission due to utox positive for cocaine. Will d/c lexapro 20 mg and start duloxetine 60 mg to target sx of depression, PTSD, may help with pain issues. Consider atypical AP, however pt is currently declining due to concern for wt gain. Continue assessment, engagement. 12/08: Change POC to BID, as pt has been in diabetic control with lantus, A1C is 7. He was not taking his POC at home and does not want to do it more than twice a day in the hospital. Will continue duloxetine trial. Requests help for SSI paperwork. Q15 min safety checks, CV Monitor response to medications. Monitor for safety in the milieu. Discharge on stabilization. Patient seen. Chart reviewed. Discussed with team. Obtain collateral contact info?as needed I spent minutes with the patient and/or on the patient floor today, greater than?50% of which was spent counseling/coordinating care. Patient educated on: medication risk/benefits and therapeutic strategies Reason for contiued inpatient stay Substantial Risk for: med/psych decompensation
--- NOTE | 2021-12-08 16:24 | PM.CNGS ---
History of Present Illness Consult details Consult date: 12/08/21 Narrative: 41-year-old male referred for an umbilical hernia. He was just admitted to the psych unit 2 days ago because of suicidal ideations with depression did has have a long history of major depressive disorder and posttraumatic stress disorder. He was referred to me because of on umbilical hernia. He actually was seen by Dr. Hancock recently for this as an outpatient. He is scheduled to have a CT scan part of the workup ordered by Dr. Hancock. Patient does describe periodic pain on his umbilical hernia. He denies GI complaints otherwise. He states that he still feels depressed. Review of Systems Constitutional: Constitutional: Denies chills and Denies fever(s) Cardiovascular: Cardiovascular: Denies chest pain, Denies dyspnea and Denies dyspnea on exertion Respiratory: Respiratory: Denies cough, Denies dyspnea and Denies dyspnea on exertion Gastrointestinal: Gastrointestinal: Denies hematochezia and Denies change in bowel habits Genitourinary: Genitourinary: Denies hematuria and Denies difficulty urinating Musculoskeletal: Musculoskeletal: Denies back pain and Denies limited range of motion Neurologic: Denies focal weakness and Denies convulsions Psychiatric: Psychiatric: Reports depression and Reports mood swings PMFSH Past Medical History Medical History (Updated 12/08/21 @ 16:27 by Bernard Crawford MD) ADD (attention deficit disorder) Anxiety Diabetes mellitus Diabetic neuropathy Obesity (BMI 30-39.9) Opioid use disorder Smoker Umbilical hernia Family History Family History Mother No problems noted. Father Diabetes Parkinson disease Other Mental health problem Substance abuse Surgical History Surgical History H/O knee surgery Social History Social History Household Members: None Housing: Homeless Do you presently have visiting nurse or other home services: No Alcohol intake: unknown Patient Tobacco Use Status: Current everyday Tobacco user Tobacco use type: Cigarette Cigarette Packs Per Day: 0.25 Cigarettes Per Day: 5.0 Years Smoked: 25 Smoked in Last 30 Days: Yes e-Cigarette/Vaping Use: Never Used Patient Interested in Nicotine Replacement: Yes (gum) Patient Given Instructions on How to Stop Smoking: No Second Hand Smoke Exposure: No Use of substances other than those prescribed or required for medical reasons: No Substance Use Type: Crack/Cocaine and Heroin Substance Use Type Other:: quit heroin 3 years ago. Used cocaine yesterday Substance Use Frequency: Recent Binge Last Used Substance Other:: 3 years ago for heroin, yesterday then 1 year ago for cocaine Currently Displaying Signs/Symptoms of Drug Intoxication Withdrawal: No Any prior treatment program specific to substance use: Yes Have you been hit, kicked, punched, or otherwise hurt by someone within the past year? If so, by whom?: No Do you feel safe in your current relationship?: No Current Relationship Is there a partner from a previous relationship who is making you feel unsafe now?: No Are you made to feel afraid or neglected: No Spiritual Healthcare Practices: Moslem and jehovah's witness Orthodoxy Healthcare Practices: Moslem and jehovah's witness Cultural Healthcare Practices: Moslem and jehovah's witness Advance Directives: No Advance Directives Information Provided: Yes Do you have thoughts of harming others: None Do you have a plan to hurt others: No Plan Recently lost weight without trying: Yes How much weight loss: 34pounds or more Eating poorly because of decreased appetite: Yes Nutrition screen score: 7 Poor oral hygiene: No service: No Current occupational status: disabled Cognitive needs: No Hearing needs: No Vision needs: Yes Meds Allergies Allergy/AdvReac Type Severity Reaction Status Date / Time buprenorphine [From Suboxone] Allergy Mild Swelling Verified 11/30/21 14:43 naloxone [From Suboxone] Allergy Mild Swelling Verified 11/30/21 14:43 Active Medications: Current Medications Acetaminophen (Acetaminophen 325 Mg Tablet) 650 mg PO Q6H PRN PRN Reason: Headache/Pain Mild Scale (1-3) Al Hydroxide/Mg Hydroxide (Magnesium Hydrox/Alum Hydrox 30 Ml Oral.Susp) 30 ml PO Q6H PRN PRN Reason: Heartburn/Nausea Clonazepam (Clonazepam 1 Mg Tablet) 1 mg PO BID PRN PRN Reason: anxiety Last Admin: 12/08/21 09:12 Dose: 1 mg Clonidine HCl (Clonidine Hcl 0.2 Mg Tablet) 0.2 mg PO TID PRN; Protocol PRN Reason: anxiety Last Admin: 12/08/21 15:35 Dose: 0.2 mg Dextrose (Dextrose 50 % 25 Gm/50 Ml Syringe) 25 gm IVPUSH Q15M PRN; Protocol PRN Reason: per Hypoglycemia Standing Ord. Duloxetine HCl (Duloxetine Hcl 60 Mg Capsule.Dr) 60 mg PO DAILY [facility] Last Admin: 12/08/21 09:06 Dose: 60 mg Gabapentin (Gabapentin 400 Mg Capsule) 800 mg PO TID [facility] Last Admin: 12/08/21 15:18 Dose: 800 mg Glucose (Glucose Gel 15 Gm Gel..Gram.) 15 gm PO Q15M PRN; Protocol PRN Reason: per Hypoglycemia Standing Ord. Hydroxyzine HCl (Hydroxyzine Hcl 25 Mg Tablet) 25 mg PO Q6H PRN PRN Reason: Anxiety Ibuprofen (Ibuprofen 600 Mg Tablet) 600 mg PO Q6H PRN PRN Reason: Pain, Mild Insulin Glargine (Insulin Glargine,Hum.Rec.Anlog 100 Unit/Ml 10 Ml Vial) 40 unit SUBCUT BEDTIME [facility] Last Admin: 12/07/21 21:20 Dose: Not Given Insulin Human Lispro (Insulin Lispro 100 Unit/Ml 3 Ml Vial) 0 unit SUBCUT BIDWM [facility]; Protocol Magnesium Hydroxide (Milk Of Magnesia 30 Ml Oral.Susp) 30 ml PO DAILY PRN PRN Reason: Constipation Methadone HCl (Methadone Hcl 20 Mg/2 Ml Oral.Conc) 65 mg PO DAILY [facility] Last Admin: 12/08/21 09:06 Dose: 65 mg Nicotine Polacrilex (Nicotine Polacrilex 2 Mg Gum) 2 mg BUCCAL Q1H PRN PRN Reason: Nicotine Cravings Pharmacy Consult (Consult Rx Perform Med Rec) 1 each MISCELLANE ONCE PRN PRN Reason: Consult order Trazodone HCl (Trazodone Hcl 50 Mg Tablet) 50 mg PO BEDTIME PRN PRN Reason: Insomnia Home Medications Medication Instructions Recorded Confirmed Last Taken Type insulin lispro 100 unit/mL 1 sliding scale dose subcut TIDAC 07/30/21 12/06/21 Unknown History subcutaneous solution (Humalog U-100 Insulin) methadone 10 mg/mL oral concentrate 65 mg PO DAILY 07/30/21 12/07/21 12/06/21 08:00 History ibuprofen 600 mg tablet 600 mg PO Q6H PRN Pain, Mild 12/06/21 12/06/21 Unknown History Physical Exam Vital Signs: Vital Signs: Last Vital Signs Temp 97.6 F 12/08/21 09:00 Pulse 82 12/08/21 09:00 Resp 18 12/08/21 09:00 BP 133/61 12/08/21 09:00 Pulse Ox 99 12/08/21 09:00 O2 Del Method 12/08/21 09:00 BMI result Body Mass Index 31.8 Const: General: comfortable and no acute distress Orientation/consciousness: patient oriented x3 Neck: Neck: Yes no lymphadenopathy Resp: Auscultation: clear to auscultation bilaterally Cardio: Rhythm: regular rhythm GI: Other: Umbilical hernia, reducible easily, mildly tender, defect was to be about 2.5-3 cm Palpation (GI): Soft to palpation, nontender and no guarding Neuro: General: patient oriented x3 Results Labs Result diagrams: 12/06/21 18:32 12/08/21 08:13 Labs: Abnormal lab results 12/08/21 Range/Units 08:13 Fasting Glucose 138 H (60-99) mg/dL BMP 12/08/21 08:13 Sodium 140 Potassium 4.6 Chloride 102 Carbon Dioxide 29 BUN 15 Creatinine 1.00 Calcium 9.3 D Liver Function 12/08/21 Range/Units 08:13 Total Bilirubin 0.2 (0.0-1.0) mg/dL AST 17 (5-37) U/L ALT 19 (0-40) U/L Alkaline Phosphatase 104 (39-117) U/L Albumin 3.9 (3.5-5.0) g/dL Urine 12/07/21 Range/Units 08:57 Urine Color Yellow Urine Appearance Hazy Urine pH 6.0 (5.0-9.0) Ur Specific [place] >= 1.030 H (1.005-1.025) Urine Protein Negative (Neg-Trace) mg/dL Urine Glucose (UA) Negative (Negative) mg/dL All other labs normal. Assessment and Plan (1) Umbilical hernia: Status: Acute This is currently easily reducible. He has been seen by Dr. Hancock of surgery for this recently as well and is being worked up with a CT scan. There is no evidence of acute duration at this time. He will benefit from her repair of this umbilical hernia down the line in view of his symptoms. He can follow up with either me or Dr. Hancock. He does understand that there is small chance that he may require urgent mention if this becomes acutely incarcerated. He is being managed for his acute behavior health issues at this time. Procedures Date of Service Date of Service: 12/08/21
[2021-12-08 17:29] LABS: Glucose, Whole Blood 143 mg/dL (60-115)
[2021-12-08 20:45] VITALS: BP 121/77; PULSE 91; RESP 16; TEMP 36.6; O2SAT 95
[2021-12-09 08:12] LABS: Glucose, Whole Blood 199 mg/dL (60-115)
[2021-12-09 08:25] VITALS: BP 125/66; PULSE 83; RESP 18; TEMP 36.6; O2SAT 98
[2021-12-09] MEDS: methADONE HCl 20 MG/2 ML ORAL.CONC 65 MG PO (08:33)
[2021-12-09] MEDS: clonazePAM 1 MG TABLET PO (08:35)
[2021-12-09] MEDS: DULoxetine HCl 60 MG CAPSULE.DR PO (08:35)
[2021-12-09] MEDS: Gabapentin 400 MG CAPSULE 800 MG PO ×3 (08:35→20:56)
[2021-12-09] MEDS: cloNIDine HCL 0.2 MG TABLET PO (08:35)
[2021-12-09] MEDS: Insulin Lispro 100 UNIT/ML 3 ML VIAL SUBCUT (09:53)
--- NOTE | 2021-12-09 11:00 | HO.PSYCHPN ---
Subjective Subjective Date of Service: 12/09/21 Reason For Visit: SI Interim History: Per pt's team, he has been refusing, POC changed to BID. I attempted to speak with pt today but he is asleep, has been napping much of the day. No safety concerns. Still wants to take adderall when he leaves. Medication Compliance: Yes Side effects from medications: No Attending Groups: No Mental Status Exam Mental Status Exam Narrative: Asleep Diagnostics Vital Signs (24Hr): Vital Signs - 24 hr 12/08/21 20:45 12/09/21 08:25 Temperature 97.9 F 97.8 F Pulse Rate 91 83 Respiratory Rate 16 18 Blood Pressure 121/77 125/66 Pulse Oximetry 95 98 Oxygen Delivery Method Room Air Room Air BMI result Body Mass Index 31.8 Labs Results: 12/06/21 18:32 12/08/21 08:13 Labs: Laboratory Results - last 48 hr 12/07/21 12/08/21 12/08/21 12:17 08:13 08:13 Sodium 140 Potassium 4.6 Chloride 102 Carbon Dioxide 29 Anion Gap 14 BUN 15 Creatinine 1.00 Estim Creat Clear Calc 123.8 Estimated GFR > 60 POC Glucose 122 H Fasting Glucose 138 H Estimat Average Glucose 163 Hemoglobin A1c % 7.3 Calcium 9.3 D Total Bilirubin 0.2 AST 17 ALT 19 Alkaline Phosphatase 104 Total Protein 7.0 Albumin 3.9 Triglycerides 201 Cholesterol 196 LDL Cholesterol, Calc 132 HDL Cholesterol 24 Vitamin B12 Folate TSH 1.16 12/08/21 12/08/21 12/09/21 08:13 12:39 08:08 Sodium Potassium Chloride Carbon Dioxide Anion Gap BUN Creatinine Estim Creat Clear Calc Estimated GFR POC Glucose 143 H 199 H Fasting Glucose Estimat Average Glucose Hemoglobin A1c % Calcium Total Bilirubin AST ALT Alkaline Phosphatase Total Protein Albumin Triglycerides Cholesterol LDL Cholesterol, Calc HDL Cholesterol Vitamin B12 709 Folate 15.9 TSH Imaging Radiology Impressions: ITS Impressions Chest X-Ray 12/06/21 19:30 IMPRESSION: Unremarkable examination. Medications Medications Current Medications Acetaminophen (Acetaminophen 325 Mg Tablet) 650 mg PO Q6H PRN PRN Reason: Headache/Pain Mild Scale (1-3) Al Hydroxide/Mg Hydroxide (Magnesium Hydrox/Alum Hydrox 30 Ml Oral.Susp) 30 ml PO Q6H PRN PRN Reason: Heartburn/Nausea Clonazepam (Clonazepam 1 Mg Tablet) 1 mg PO BID PRN PRN Reason: anxiety Last Admin: 12/09/21 08:35 Dose: 1 mg Clonidine HCl (Clonidine Hcl 0.2 Mg Tablet) 0.2 mg PO TID PRN; Protocol PRN Reason: anxiety Last Admin: 12/09/21 08:35 Dose: 0.2 mg Dextrose (Dextrose 50 % 25 Gm/50 Ml Syringe) 25 gm IVPUSH Q15M PRN; Protocol PRN Reason: per Hypoglycemia Standing Ord. Duloxetine HCl (Duloxetine Hcl 60 Mg Capsule.Dr) 60 mg PO DAILY [facility] Last Admin: 12/09/21 08:35 Dose: 60 mg Gabapentin (Gabapentin 400 Mg Capsule) 800 mg PO TID [facility] Last Admin: 12/09/21 08:35 Dose: 800 mg Glucose (Glucose Gel 15 Gm Gel..Gram.) 15 gm PO Q15M PRN; Protocol PRN Reason: per Hypoglycemia Standing Ord. Hydroxyzine HCl (Hydroxyzine Hcl 25 Mg Tablet) 25 mg PO Q6H PRN PRN Reason: Anxiety Ibuprofen (Ibuprofen 600 Mg Tablet) 600 mg PO Q6H PRN PRN Reason: Pain, Mild Insulin Glargine (Insulin Glargine,Hum.Rec.Anlog 100 Unit/Ml 10 Ml Vial) 40 unit SUBCUT BEDTIME [facility] Last Admin: 12/08/21 20:57 Dose: Not Given Insulin Human Lispro (Insulin Lispro 100 Unit/Ml 3 Ml Vial) 0 unit SUBCUT BIDWM [facility]; Protocol Last Admin: 12/09/21 09:53 Dose: 2 unit Magnesium Hydroxide (Milk Of Magnesia 30 Ml Oral.Susp) 30 ml PO DAILY PRN PRN Reason: Constipation Methadone HCl (Methadone Hcl 20 Mg/2 Ml Oral.Conc) 65 mg PO DAILY [facility] Last Admin: 12/09/21 08:33 Dose: 65 mg Nicotine Polacrilex (Nicotine Polacrilex 2 Mg Gum) 2 mg BUCCAL Q1H PRN PRN Reason: Nicotine Cravings Pharmacy Consult (Consult Rx Perform Med Rec) 1 each MISCELLANE ONCE PRN PRN Reason: Consult order Trazodone HCl (Trazodone Hcl 50 Mg Tablet) 50 mg PO BEDTIME PRN PRN Reason: Insomnia Allergies Allergies Allergy/AdvReac Type Severity Reaction Status Date / Time buprenorphine [From Suboxone] Allergy Mild Swelling Verified 11/30/21 14:43 naloxone [From Suboxone] Allergy Mild Swelling Verified 11/30/21 14:43 Assessment & Plan Assessment & Plan (1) ADHD (attention deficit hyperactivity disorder): Status: Acute Code(s): F90.9 - Attention-deficit hyperactivity disorder, unspecified type (2) MDD (major depressive disorder), recurrent, severe, with psychosis: Status: Acute Code(s): F33.3 - Major depressive disorder, recurrent, severe with psychotic symptoms (3) Post traumatic stress disorder (PTSD): Status: Acute Code(s): F43.10 - Post-traumatic stress disorder, unspecified Plan Geovani is a 41 y.o. male who carries a dx of ADHD, MDD with psychotic features, PTSD, cocaine use disorder, and opioid use disorder (abstinent, on methadone). Pt has co-morbid insulin dependent diabetes, diabetic neuropathy, and obesity. He presented to [facility] on 12/06/21 due to increased depression and SI with plan to overdose on his insulin. Utox positive for cocaine. Stressors include that pt was recently kicked out of the [facility] program due to disagreements with staff. He has housing instability, long hx of homelessness. Denies hx of IPLOC. No current OP psych services. Plan: Will hold adderall 25 mg BID during admission due to utox positive for cocaine. Will d/c lexapro 20 mg and start duloxetine 60 mg to target sx of depression, PTSD, may help with pain issues. Consider atypical AP, however pt is currently declining due to concern for wt gain. Continue assessment, engagement. 12/08: Change POC to BID, as pt has been in diabetic control with lantus, A1C is 7. He was not taking his POC at home and does not want to do it more than twice a day in the hospital. Will continue duloxetine trial. Requests help for SSI paperwork. 12/09: no med changes Q15 min safety checks, CV Monitor response to medications. Monitor for safety in the milieu. Discharge on stabilization. Patient seen. Chart reviewed. Discussed with team. Obtain collateral contact info?as needed I spent minutes with the patient and/or on the patient floor today, greater than?50% of which was spent counseling/coordinating care. Patient educated on: other Reason for contiued inpatient stay Substantial Risk for: med/psych decompensation
[2021-12-09 14:09] VITALS: BP 86/48; PULSE 90
--- NOTE | 2021-12-09 15:21 | PC.NURSE ---
Patient stating that he is not symptomatic w/ low BP. RN completing vitals reported to provider. Patient aware that he is unable to receive clonidine at this time due to BP.
[2021-12-09 20:44] LABS: Glucose, Whole Blood 93 mg/dL (60-115)
[2021-12-09 20:45] VITALS: BP 119/57; PULSE 82; RESP 16; TEMP 36.7; O2SAT 99
[2021-12-09] MEDS: cloNIDine HCL 0.1 MG TABLET PO (20:56)
[2021-12-10 08:34] VITALS: BP 146/98; PULSE 87; RESP 16; TEMP 36.6; O2SAT 99
[2021-12-10] MEDS: methADONE HCl 20 MG/2 ML ORAL.CONC 65 MG PO (08:41)
[2021-12-10] MEDS: Gabapentin 400 MG CAPSULE 800 MG PO ×3 (08:43→20:23)
[2021-12-10] MEDS: DULoxetine HCl 60 MG CAPSULE.DR PO (08:44)
[2021-12-10] MEDS: clonazePAM 1 MG TABLET PO ×2 (08:44→20:23)
[2021-12-10] MEDS: cloNIDine HCL 0.1 MG TABLET PO ×2 (08:50→14:45)
--- NOTE | 2021-12-10 16:30 | P.PNPSI_ITS ---
Subjective Subjective Date of Service: 12/10/21 Reason For Visit: SI Subjective Notes: [place] Warning Interim History: I spoke with pt today, says [address], has been thinking. Has not noticed a difference on duloxetine. Feels a little tired, trying to read, forcing himself to concentrate and read, difficult without adderall. He was waking up last night with aches and pains. Wants clonidine restored to 0.2 mg, had been lowered yesterday after [facility] staff nurse reported low BP, however pt says 0.2 mg is the dose that works if he really needs it for sleep and anxiety. Medication Compliance: Yes Side effects from medications: No Attending Groups: No Review of Systems Acute medical concerns: No Medical Review of Systems: unchanged Mental Status Exam Mental Status Exam Narrative: A&O. Large frame, overweight, wearing head scarf, casual attire, okay grooming/ hygiene. Poor eye contact, attentive. No Tics or Tremors. No abnormal involuntary movements. Agitated but ultimately cooperative, engaged. Non- pressured speech, spontaneous with regular rate and rhythm, normal volume and prosody. No prolonged speech latency or dysarthria. Mood is ?depressed,? tired, affect is congruent. Denies SI/SIB/HI upon inquiry. Endorses AH, derogatory in nature. Denies VH or delusional thought content. Thoughts are goal oriented. No known cognitive or memory impairment. Insight/ Judgment limited but adequate. Diagnostics Vital Signs (24Hr): Vital Signs - 24 hr 12/09/21 20:45 12/10/21 08:34 Temperature 98.1 F 97.8 F Pulse Rate 82 87 Respiratory Rate 16 16 Blood Pressure 119/57 L 146/98 H Pulse Oximetry 99 99 Oxygen Delivery Method Room Air Room Air BMI result Body Mass Index 31.8 Labs Results: 12/06/21 18:32 12/08/21 08:13 Labs: Laboratory Results - last 48 hr 12/08/21 12/09/21 12/09/21 12:39 08:08 20:38 POC Glucose 143 H 199 H 93 Imaging Radiology Impressions: ITS Impressions Chest X-Ray 12/06/21 19:30 IMPRESSION: Unremarkable examination. Medications Medications Current Medications Acetaminophen (Acetaminophen 325 Mg Tablet) 650 mg PO Q6H PRN PRN Reason: Headache/Pain Mild Scale (1-3) Al Hydroxide/Mg Hydroxide (Magnesium Hydrox/Alum Hydrox 30 Ml Oral.Susp) 30 ml PO Q6H PRN PRN Reason: Heartburn/Nausea Clonazepam (Clonazepam 1 Mg Tablet) 1 mg PO BID PRN PRN Reason: anxiety Last Admin: 12/10/21 08:44 Dose: 1 mg Clonidine HCl (Clonidine Hcl 0.1 Mg Tablet) 0.1 mg PO TID PRN; Protocol PRN Reason: anxiety Last Admin: 12/10/21 14:45 Dose: 0.1 mg Dextrose (Dextrose 50 % 25 Gm/50 Ml Syringe) 25 gm IVPUSH Q15M PRN; Protocol PRN Reason: per Hypoglycemia Standing Ord. Duloxetine HCl (Duloxetine Hcl 60 Mg Capsule.Dr) 60 mg PO DAILY [facility] Last Admin: 12/10/21 08:44 Dose: 60 mg Gabapentin (Gabapentin 400 Mg Capsule) 800 mg PO TID [facility] Last Admin: 12/10/21 14:39 Dose: 800 mg Glucose (Glucose Gel 15 Gm Gel..Gram.) 15 gm PO Q15M PRN; Protocol PRN Reason: per Hypoglycemia Standing Ord. Hydroxyzine HCl (Hydroxyzine Hcl 25 Mg Tablet) 25 mg PO Q6H PRN PRN Reason: Anxiety Ibuprofen (Ibuprofen 600 Mg Tablet) 600 mg PO Q6H PRN PRN Reason: Pain, Mild Insulin Glargine (Insulin Glargine,Hum.Rec.Anlog 100 Unit/Ml 10 Ml Vial) 40 unit SUBCUT BEDTIME [facility] Last Admin: 12/10/21 01:11 Dose: Not Given Insulin Human Lispro (Insulin Lispro 100 Unit/Ml 3 Ml Vial) 0 unit SUBCUT BIDWM [facility]; Protocol Last Admin: 12/10/21 08:52 Dose: Not Given Magnesium Hydroxide (Milk Of Magnesia 30 Ml Oral.Susp) 30 ml PO DAILY PRN PRN Reason: Constipation Methadone HCl (Methadone Hcl 20 Mg/2 Ml Oral.Conc) 65 mg PO DAILY [facility] Last Admin: 12/10/21 08:41 Dose: 65 mg Nicotine Polacrilex (Nicotine Polacrilex 2 Mg Gum) 2 mg BUCCAL Q1H PRN PRN Reason: Nicotine Cravings Pharmacy Consult (Consult Rx Perform Med Rec) 1 each MISCELLANE ONCE PRN PRN Reason: Consult order Trazodone HCl (Trazodone Hcl 50 Mg Tablet) 50 mg PO BEDTIME PRN PRN Reason: Insomnia Allergies Allergies Allergy/AdvReac Type Severity Reaction Status Date / Time buprenorphine [From Suboxone] Allergy Mild Swelling Verified 11/30/21 14:43 naloxone [From Suboxone] Allergy Mild Swelling Verified 11/30/21 14:43 Assessment & Plan Assessment & Plan (1) ADHD (attention deficit hyperactivity disorder): Status: Acute Code(s): F90.9 - Attention-deficit hyperactivity disorder, unspecified type (2) MDD (major depressive disorder), recurrent, severe, with psychosis: Status: Acute Code(s): F33.3 - Major depressive disorder, recurrent, severe with psychotic symptoms (3) Post traumatic stress disorder (PTSD): Status: Acute Code(s): F43.10 - Post-traumatic stress disorder, unspecified Plan Geovani is a 41 y.o. male who carries a dx of ADHD, MDD with psychotic features, PTSD, cocaine use disorder, and opioid use disorder (abstinent, on methadone). Pt has co-morbid insulin dependent diabetes, diabetic neuropathy, and obesity. He presented to [facility] on 12/06/21 due to increased depression and SI with plan to overdose on his insulin. Utox positive for cocaine. Stressors include that pt was recently kicked out of the [facility] program due to disagreements with staff. He has housing instability, long hx of homelessness. Denies hx of IPLOC. No current OP psych services. Plan: Will hold adderall 25 mg BID during admission due to utox positive for cocaine. Will d/c lexapro 20 mg and start duloxetine 60 mg to target sx of depression, PTSD, may help with pain issues. Consider atypical AP, however pt is currently declining due to concern for wt gain. Continue assessment, engagement. 12/08: Change POC to BID, as pt has been in diabetic control with lantus, A1C is 7. He was not taking his POC at home and does not want to do it more than twice a day in the hospital. Will continue duloxetine trial. Requests help for SSI paperwork. 12/09: clonidine PRN lowered to 0.1 mg due to hypotension 12/10: Pt requests clonidine PRN be restored to 0.2 mg, understands it will be held for BP< 90/60 mmHg, will add gabapentin 400 mg QD PRN for anxiety, pain. Q15 min safety checks, CV Monitor response to medications. Monitor for safety in the milieu. Discharge on stabilization. Patient seen. Chart reviewed. Discussed with team. Obtain collateral contact info?as needed I spent minutes with the patient and/or on the patient floor today, greater than?50% of which was spent counseling/coordinating care. Patient educated on: medication risk/benefits and therapeutic strategies Reason for contiued inpatient stay Substantial Risk for: med/psych decompensation
[2021-12-10 20:15] VITALS: BP 123/75; PULSE 86; RESP 18; TEMP 36.6; O2SAT 96
[2021-12-10] MEDS: cloNIDine HCL 0.2 MG TABLET PO (20:23)
[2021-12-11 06:00] VITALS: BP 129/84; PULSE 84; RESP 18; TEMP 36.6; O2SAT 100
[2021-12-11] MEDS: DULoxetine HCl 60 MG CAPSULE.DR PO (08:45)
[2021-12-11] MEDS: Gabapentin 400 MG CAPSULE 800 MG PO ×3 (08:45→20:41)
[2021-12-11] MEDS: methADONE HCl 20 MG/2 ML ORAL.CONC 65 MG PO (08:47)
[2021-12-11] MEDS: Insulin Lispro 100 UNIT/ML 3 ML VIAL SUBCUT (09:18)
[2021-12-11] MEDS: cloNIDine HCL 0.2 MG TABLET PO ×2 (09:19→14:34)
[2021-12-11] MEDS: clonazePAM 1 MG TABLET PO ×2 (09:19→14:34)
[2021-12-11 09:23] LABS: Glucose, Whole Blood 158 mg/dL (60-115)
--- NOTE | 2021-12-11 11:11 | HO.PSYCHPN ---
Subjective Subjective Date of Service: 12/11/21 Reason For Visit: SI Subjective Notes: Conditional Voluntary Interim History: Pt reports a general sense of hopelessness about life even when not suicidal. He reports fair sleep. He reports he hopes to get into dual dx program as he states last one he was at not a good one. He denies SI/HI. No VH/AH. He is mostly in his room. No behavioral concerns. Medication Compliance: Yes Side effects from medications: No Attending Groups: No Review of Systems Review of Systems CVS: No c/o chest pain, palpitations, no SOB NOISE TESTER: No c/o dizziness, headache GI: No c/o Nausea, Vomiting, diarrhea, constipation or heartburn Yes all other systems are reviewed and are negative Constitutional: Reports as per HPI, Denies chills and Denies fever(s) Cardiovascular: Denies chest pain, Denies dyspnea and Denies dyspnea on exertion Respiratory: Denies cough, Denies dyspnea and Denies dyspnea on exertion Gastrointestinal: Denies hematochezia and Denies change in bowel habits Genitourinary: Denies hematuria and Denies difficulty urinating Musculoskeletal: Denies back pain and Denies limited range of motion Denies focal weakness and Denies convulsions Psychiatric: Reports depression and Reports mood swings Mental Status Exam Mental Status Exam Narrative: A&O. Large frame, overweight, wearing head scarf, casual attire, okay grooming/ hygiene. Poor eye contact, attentive. No Tics or Tremors. No abnormal involuntary movements. Agitated but ultimately cooperative, engaged. Non-pressured speech, spontaneous with regular rate and rhythm, normal volume and prosody. No prolonged speech latency or dysarthria. Mood is ?depressed,? tired, affect is congruent. Denies SI/SIB/HI upon inquiry. Endorses AH, derogatory in nature. Denies VH or delusional thought content. Thoughts are goal oriented. No known cognitive or memory impairment. Insight/ Judgment limited but adequate. Diagnostics Vital Signs (24Hr): Vital Signs - 24 hr 12/10/21 20:15 12/11/21 06:00 Temperature 97.9 F 97.8 F Pulse Rate 86 84 Respiratory Rate 18 18 Blood Pressure 123/75 129/84 Pulse Oximetry 96 100 Oxygen Delivery Method Room Air Room Air BMI result Body Mass Index 31.8 Labs Results: 12/06/21 18:32 12/08/21 08:13 Labs: Laboratory Results - last 48 hr 12/09/21 12/11/21 20:38 09:14 POC Glucose 93 158 H Imaging Radiology Impressions: ITS Impressions Chest X-Ray 12/06/21 19:30 IMPRESSION: Unremarkable examination. Medications Medications Current Medications Acetaminophen (Acetaminophen 325 Mg Tablet) 650 mg PO Q6H PRN PRN Reason: Headache/Pain Mild Scale (1-3) Al Hydroxide/Mg Hydroxide (Magnesium Hydrox/Alum Hydrox 30 Ml Oral.Susp) 30 ml PO Q6H PRN PRN Reason: Heartburn/Nausea Clonazepam (Clonazepam 1 Mg Tablet) 1 mg PO BID PRN PRN Reason: anxiety Last Admin: 12/11/21 09:19 Dose: 1 mg Clonidine HCl (Clonidine Hcl 0.2 Mg Tablet) 0.2 mg PO BID PRN; Protocol PRN Reason: anxiety Last Admin: 12/11/21 09:19 Dose: 0.2 mg Dextrose (Dextrose 50 % 25 Gm/50 Ml Syringe) 25 gm IVPUSH Q15M PRN; Protocol PRN Reason: per Hypoglycemia Standing Ord. Duloxetine HCl (Duloxetine Hcl 60 Mg Capsule.Dr) 60 mg PO DAILY [facility] Last Admin: 12/11/21 08:45 Dose: 60 mg Gabapentin (Gabapentin 400 Mg Capsule) 800 mg PO TID [facility] Last Admin: 12/11/21 08:45 Dose: 800 mg Gabapentin (Gabapentin 400 Mg Capsule) 400 mg PO DAILY PRN PRN Reason: neuropathic pain Glucose (Glucose Gel 15 Gm Gel..Gram.) 15 gm PO Q15M PRN; Protocol PRN Reason: per Hypoglycemia Standing Ord. Hydroxyzine HCl (Hydroxyzine Hcl 25 Mg Tablet) 25 mg PO Q6H PRN PRN Reason: Anxiety Ibuprofen (Ibuprofen 600 Mg Tablet) 600 mg PO Q6H PRN PRN Reason: Pain, Mild Insulin Glargine (Insulin Glargine,Hum.Rec.Anlog 100 Unit/Ml 10 Ml Vial) 40 unit SUBCUT BEDTIME [facility] Last Admin: 12/10/21 21:27 Dose: Not Given Insulin Human Lispro (Insulin Lispro 100 Unit/Ml 3 Ml Vial) 0 unit SUBCUT BIDWM [facility]; Protocol Last Admin: 12/11/21 09:18 Dose: 2 unit Magnesium Hydroxide (Milk Of Magnesia 30 Ml Oral.Susp) 30 ml PO DAILY PRN PRN Reason: Constipation Methadone HCl (Methadone Hcl 20 Mg/2 Ml Oral.Conc) 65 mg PO DAILY [facility] Last Admin: 12/11/21 08:47 Dose: 65 mg Nicotine Polacrilex (Nicotine Polacrilex 2 Mg Gum) 2 mg BUCCAL Q1H PRN PRN Reason: Nicotine Cravings Pharmacy Consult (Consult Rx Perform Med Rec) 1 each MISCELLANE ONCE PRN PRN Reason: Consult order Trazodone HCl (Trazodone Hcl 50 Mg Tablet) 50 mg PO BEDTIME PRN PRN Reason: Insomnia Allergies Allergies Allergy/AdvReac Type Severity Reaction Status Date / Time buprenorphine [From Suboxone] Allergy Mild Swelling Verified 11/30/21 14:43 naloxone [From Suboxone] Allergy Mild Swelling Verified 11/30/21 14:43 Assessment & Plan Assessment & Plan (1) MDD (major depressive disorder), recurrent, severe, with psychosis: Status: Acute Code(s): F33.3 - Major depressive disorder, recurrent, severe with psychotic symptoms (2) ADHD (attention deficit hyperactivity disorder): Status: Acute Code(s): F90.9 - Attention-deficit hyperactivity disorder, unspecified type (3) Post traumatic stress disorder (PTSD): Status: Acute Code(s): F43.10 - Post-traumatic stress disorder, unspecified Plan Geovani is a 41 y.o. male who carries a dx of ADHD, MDD with psychotic features, PTSD, cocaine use disorder, and opioid use disorder (abstinent, on methadone). Pt has co-morbid insulin dependent diabetes, diabetic neuropathy, and obesity. He presented to [facility] on 12/06/21 due to increased depression and SI with plan to overdose on his insulin. Utox positive for cocaine. Stressors include that pt was recently kicked out of the [facility] program due to disagreements with staff. He has housing instability, long hx of homelessness. Denies hx of IPLOC. No current OP psych services. Plan: Will hold adderall 25 mg BID during admission due to utox positive for cocaine. Will d/c lexapro 20 mg and start duloxetine 60 mg to target sx of depression, PTSD, may help with pain issues. Consider atypical AP, however pt is currently declining due to concern for wt gain. Continue assessment, engagement. 12/08: Change POC to BID, as pt has been in diabetic control with lantus, A1C is 7. He was not taking his POC at home and does not want to do it more than twice a day in the hospital. Will continue duloxetine trial. Requests help for SSI paperwork. 12/09: clonidine PRN lowered to 0.1 mg due to hypotension 12/10: Pt requests clonidine PRN be restored to 0.2 mg, understands it will be held for BP< 90/60 mmHg, will add gabapentin 400 mg 12/11 continue current medications. QD PRN for anxiety, pain. Q15 min safety checks, CV Monitor response to medications. Monitor for safety in the milieu. Discharge on stabilization. Patient seen. Chart reviewed. Discussed with team. Obtain collateral contact info?as needed I spent minutes with the patient and/or on the patient floor today, greater than?50% of which was spent counseling/coordinating care. Reason for contiued inpatient stay Substantial Risk for: harm to self
[2021-12-11 18:09] LABS: Glucose, Whole Blood 120 mg/dL (60-115)
[2021-12-11] MEDS: Insulin Glargine,Hum.rec.anlog 100 UNIT/ML 10 ML VIAL 40 UNIT SUBCUT (20:37)
[2021-12-11 20:41] VITALS: BP 130/75; PULSE 69; RESP 16; TEMP 36.4; O2SAT 98
[2021-12-11] MEDS: traZODone HCL 50 MG TABLET PO (20:49)
[2021-12-12 08:32] VITALS: BP 148/94; PULSE 89; RESP 16; TEMP 36.6; O2SAT 98
[2021-12-12] MEDS: methADONE HCl 20 MG/2 ML ORAL.CONC 65 MG PO (08:57)
[2021-12-12] MEDS: Gabapentin 400 MG CAPSULE 800 MG PO ×3 (08:57→20:07)
[2021-12-12] MEDS: cloNIDine HCL 0.2 MG TABLET PO ×2 (08:58→14:37)
[2021-12-12] MEDS: DULoxetine HCl 60 MG CAPSULE.DR PO (08:58)
[2021-12-12] MEDS: Dextroamphetamine/Amphetamine XR 10 MG CAP.ER.24H PO (11:21)
[2021-12-12] MEDS: clonazePAM 1 MG TABLET PO ×2 (11:22→20:07)
--- NOTE | 2021-12-12 14:29 | P.PNPSI_ITS ---
Subjective Subjective Date of Service: 12/12/21 Reason For Visit: SI Interim History: calm, cooperative. tells his story of his family' falling apart, then his starting to use drugs, then his losing his house in [place]. he reports using only about the past 4 years. expresses the desire to get his kids back. first needs to establish some kind of home. wants [facility] program. c/o poor concentration, asking for stimulants to be reinstated. discussed concern over script for stimulants in pt who has cocaine addiction Hx. MD agrees to restart adderall XR at 10 mg daily today. per staff, anxious and depressed, but improved from admission. sleeping better. no AVH. isolative, reading. taking meds. Mental Status Exam Mental Status Exam Narrative: A&O. Large frame, overweight, casual attire, okay grooming/ hygiene. fair eye contact, attentive. No Tics or Tremors. No abnormal involuntary movements. cooperative, engaged. Non-pressured speech, spontaneous with regular rate and rhythm, normal volume and prosody. No prolonged speech latency or dysarthria. affect is constricted, normo-intense, non-labile. no SI/HI/AVH expressed. Thoughts are goal oriented, linear, and logical. No known cognitive or memory impairment. Insight/ Judgment limited but adequate. Diagnostics Vital Signs (24Hr): Vital Signs - 24 hr 12/11/21 20:41 12/12/21 08:32 Temperature 97.6 F 97.9 F Pulse Rate 69 89 Respiratory Rate 16 16 Blood Pressure 130/75 148/94 H Pulse Oximetry 98 98 Oxygen Delivery Method Room Air Room Air BMI result Body Mass Index 31.8 Labs Results: 12/06/21 18:32 12/08/21 08:13 Labs: Laboratory Results - last 48 hr 12/11/21 12/11/21 09:14 18:05 POC Glucose 158 H 120 H Imaging Radiology Impressions: ITS Impressions Chest X-Ray 12/06/21 19:30 IMPRESSION: Unremarkable examination. Medications Medications Current Medications Acetaminophen (Acetaminophen 325 Mg Tablet) 650 mg PO Q6H PRN PRN Reason: Headache/Pain Mild Scale (1-3) Al Hydroxide/Mg Hydroxide (Magnesium Hydrox/Alum Hydrox 30 Ml Oral.Susp) 30 ml PO Q6H PRN PRN Reason: Heartburn/Nausea Amphetamine/Dextroamphetamine (Dextroamphetamine/Amphetamine Xr 10 Mg Cap.Er.24h) 10 mg PO DAILY [facility] Last Admin: 12/12/21 11:21 Dose: 10 mg Clonazepam (Clonazepam 1 Mg Tablet) 1 mg PO BID PRN PRN Reason: Anxiety Last Admin: 12/12/21 11:22 Dose: 1 mg Clonidine HCl (Clonidine Hcl 0.2 Mg Tablet) 0.2 mg PO BID PRN; Protocol PRN Reason: anxiety Last Admin: 12/12/21 08:58 Dose: 0.2 mg Duloxetine HCl (Duloxetine Hcl 60 Mg Capsule.Dr) 60 mg PO DAILY [facility] Last Admin: 12/12/21 08:58 Dose: 60 mg Gabapentin (Gabapentin 400 Mg Capsule) 800 mg PO TID [facility] Last Admin: 12/12/21 08:57 Dose: 800 mg Gabapentin (Gabapentin 400 Mg Capsule) 400 mg PO DAILY PRN PRN Reason: neuropathic pain Glucose (Glucose Gel 15 Gm Gel..Gram.) 15 gm PO Q15M PRN; Protocol PRN Reason: per Hypoglycemia Standing Ord. Hydroxyzine HCl (Hydroxyzine Hcl 25 Mg Tablet) 25 mg PO Q6H PRN PRN Reason: Anxiety Ibuprofen (Ibuprofen 600 Mg Tablet) 600 mg PO Q6H PRN PRN Reason: Pain, Mild Insulin Glargine (Insulin Glargine,Hum.Rec.Anlog 100 Unit/Ml 10 Ml Vial) 40 unit SUBCUT BEDTIME [facility] Last Admin: 12/11/21 20:37 Dose: 40 unit Insulin Human Lispro (Insulin Lispro 100 Unit/Ml 3 Ml Vial) 0 unit SUBCUT BIDWM [facility]; Protocol Last Admin: 12/12/21 08:55 Dose: Not Given Magnesium Hydroxide (Milk Of Magnesia 30 Ml Oral.Susp) 30 ml PO DAILY PRN PRN Reason: Constipation Methadone HCl (Methadone Hcl 20 Mg/2 Ml Oral.Conc) 65 mg PO DAILY [facility] Last Admin: 12/12/21 08:57 Dose: 65 mg Nicotine Polacrilex (Nicotine Polacrilex 2 Mg Gum) 2 mg BUCCAL Q1H PRN PRN Reason: Nicotine Cravings Trazodone HCl (Trazodone Hcl 50 Mg Tablet) 50 mg PO BEDTIME PRN PRN Reason: Insomnia Last Admin: 12/11/21 20:49 Dose: 50 mg Allergies Allergies Allergy/AdvReac Type Severity Reaction Status Date / Time buprenorphine [From Suboxone] Allergy Mild Swelling Verified 11/30/21 14:43 naloxone [From Suboxone] Allergy Mild Swelling Verified 11/30/21 14:43 Assessment & Plan Assessment & Plan (1) MDD (major depressive disorder), recurrent, severe, with psychosis: Status: Acute Code(s): F33.3 - Major depressive disorder, recurrent, severe with psychotic symptoms (2) ADHD (attention deficit hyperactivity disorder): Status: Acute Code(s): F90.9 - Attention-deficit hyperactivity disorder, unspecified type (3) Post traumatic stress disorder (PTSD): Status: Acute Code(s): F43.10 - Post-traumatic stress disorder, unspecified Plan Geovani is a 41 y.o. male who carries a dx of ADHD, MDD with psychotic features, PTSD, cocaine use disorder, and opioid use disorder (abstinent, on methadone). Pt has co-morbid insulin dependent diabetes, diabetic neuropathy, and obesity. He presented to [facility] on 12/06/21 due to increased depression and SI with plan to overdose on his insulin. Utox positive for cocaine. Stressors include that pt [facility] due to disagreements with staff. He has housing instability, long hx of homelessness. Denies hx of IPLOC. No current OP psych services. Plan: Will hold adderall 25 mg BID during admission due to utox positive for cocaine. Will d/c lexapro 20 mg and start duloxetine 60 mg to target sx of depression, PTSD, may help with pain issues. Consider atypical AP, however pt is currently declining due to concern for wt gain. Continue assessment, engagement. 12/08: Change POC to BID, as pt has been in diabetic control with lantus, A1C is 7. He was not taking his POC at home and does not want to do it more than twice a day in the hospital. Will continue duloxetine trial. Requests help for SSI paperwork. 12/09: clonidine PRN lowered to 0.1 mg due to hypotension 12/10: Pt requests clonidine PRN be restored to 0.2 mg, understands it will be held for BP< 90/60 mmHg, will add gabapentin 400 mg 12/11 continue current medications. 12/12: restarted stimulant, but XR formulation at 10 mg daily. otherwise no changes. QD PRN for anxiety, pain. Q15 min safety checks, CV Monitor response to medications. Monitor for safety in the milieu. Discharge on stabilization. Patient seen. Chart reviewed. Discussed with team. Obtain collateral contact info?as needed I spent ___25___ minutes with the patient and/or on the patient floor today, greater than?50% of which was spent counseling/coordinating care. Reason for contiued inpatient stay Substantial Risk for: inability to function and rapid decompensation
[2021-12-12] MEDS: traZODone HCL 50 MG TABLET PO (20:07)
[2021-12-12 20:18] LABS: Glucose, Whole Blood 137 mg/dL (60-115)
[2021-12-12 20:18] LABS: Glucose, Whole Blood 152 mg/dL (60-115)
[2021-12-12] MEDS: Insulin Glargine,Hum.rec.anlog 100 UNIT/ML 10 ML VIAL 40 UNIT SUBCUT (20:21)
[2021-12-12 20:22] VITALS: RESP 16
[2021-12-13 07:00] VITALS: BMI 31.5
[2021-12-13 08:00] VITALS: BP 120/77; PULSE 79; RESP 16; TEMP 36.6; O2SAT 100
[2021-12-13] MEDS: Gabapentin 400 MG CAPSULE 800 MG PO ×3 (08:52→21:39)
[2021-12-13] MEDS: clonazePAM 1 MG TABLET PO (08:53)
[2021-12-13] MEDS: Dextroamphetamine/Amphetamine XR 10 MG CAP.ER.24H PO (08:53)
[2021-12-13] MEDS: cloNIDine HCL 0.2 MG TABLET PO ×3 (08:53→21:51)
[2021-12-13] MEDS: methADONE HCl 20 MG/2 ML ORAL.CONC 65 MG PO (08:54)
[2021-12-13] MEDS: DULoxetine HCl 60 MG CAPSULE.DR PO (09:09)
[2021-12-13] MEDS: Gabapentin 400 MG CAPSULE PO (11:35)
[2021-12-13 14:43] VITALS: BP 121/79; PULSE 100
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
[2021-12-13 18:00] VITALS: RESP 16
[2021-12-13] MEDS: clonazePAM 0.5 MG TABLET PO (21:39)
[2021-12-13] MEDS: traZODone HCL 50 MG TABLET PO (21:39)
[2021-12-13 21:45] VITALS: BP 129/82; PULSE 82
[2021-12-14 06:00] VITALS: BP 121/85; PULSE 82; TEMP 36.2; O2SAT 100
[2021-12-14] MEDS: Dextroamphetamine/Amphetamine XR 5 MG CAP.ER.24H PO (09:38)
[2021-12-14] MEDS: Gabapentin 400 MG CAPSULE 800 MG PO (09:38)
[2021-12-14] MEDS: DULoxetine HCl 60 MG CAPSULE.DR PO (09:38)
[2021-12-14] MEDS: clonazePAM 0.5 MG TABLET PO (09:46)
[2021-12-14] MEDS: cloNIDine HCL 0.2 MG TABLET PO (09:46)
[2021-12-14] MEDS: methADONE HCl 20 MG/2 ML ORAL.CONC 65 MG PO (10:20)
--- NOTE | 2021-12-14 12:58 | PC.NURSE ---
Patient is alert, aware of discharge plan, knowledgeable about prescribed medications, upcoming appointments and how to access help in crisis. He reports hernia pain and has a f/u appt on 12/18/21 to address this. He denies imminent intent to harm self or others. He is future oriented to 12/18 appointment
== END 2021-12-14 14:18 | disposition home or self-care (01) | DRG 751 ==
LOC: HO.ED 12-07 10:19 → HO.PADLT16 12-07 11:07
PROVIDERS: Physician Assistant; Social Worker; Admitting Provider Psychiatry & Neurology Psychiatry; Emergency Provider Student in an Organized Health Care Education/Training Program; PCP Internal Medicine; Visit Provider Psychiatry & Neurology Psychiatry
DX: F33.3 Major depressive disorder, recurrent, severe with psychotic symptoms (principal); R45.851 Suicidal ideations; E11.40 Type 2 diabetes mellitus with diabetic neuropathy, unspecified; E66.9 Obesity, unspecified; F17.210 Nicotine dependence, cigarettes, uncomplicated; Z71.6 Tobacco abuse counseling; K42.9 Umbilical hernia without obstruction or gangrene; F90.9 Attention-deficit hyperactivity disorder, unspecified type; F11.20 Opioid dependence, uncomplicated; Z68.31 Body mass index [BMI] 31.0-31.9, adult; Z20.822 Contact with and (suspected) exposure to COVID-19; Z88.8 Allergy status to other drugs, medicaments and biological substances; Z79.4 Long term (current) use of insulin; Z79.899 Other long term (current) drug therapy
CPT/HCPCS: 36415; 71045; 80048; 80053; 80061; 80076; 80307; 81003; 82077; 82607; 82746; 82947; 83036; 83735; 84443; 85025; 87635; 93005; 99285

== ENCOUNTER → 2022-09-30 12:22 | Outpatient (BNVA) | payer OTHER, SELFPAY | PROVIDERS: PCP Internal Medicine; Visit Provider Surgery | DX: K43.9 Ventral hernia without obstruction or gangrene (principal); F33.3 Major depressive disorder, recurrent, severe with psychotic symptoms; E66.9 Obesity, unspecified; F98.8 Other specified behavioral and emotional disorders with onset usually occurring in childhood and adolescence; E10.40 Type 1 diabetes mellitus with diabetic neuropathy, unspecified | CPT/HCPCS: 99212 ==

== ENCOUNTER 2023-08-06 14:46 | Outpatient (AMB) | payer OTHER, SELFPAY ==
[2023-08-06 14:47] VITALS: BP 104/86; PULSE 103; O2SAT 96; BMI 35.7
--- NOTE | 2023-08-06 14:47 | MHC.PC.OV ---
Vital Signs 08/06/23 14:47 Height 6 ft Weight 263 lb 0.3 oz BMI 35.7 BP 104/86 Blood Pressure Location Lt brachial Position Sitting Pulse 103 H Pulse Source Pulse Oximeter Pulse Oximetry (%) 96 Oxygen Delivery Method Room Air Intake Visit Reasons: hernia fup + needs PHQ-9+THIRVE Intake Note: Patient is here to follow up Software Product Manager Required: No Allergies buprenorphine [From Suboxone] Allergy (Mild, Verified 08/06/23 15:52) Swelling naloxone [From Suboxone] Allergy (Mild, Verified 08/06/23 15:52) Swelling Medication List - Last Reconciled 08/06/23 by Lucas Wu MD aripiprazole 10 mg PO DAILY 30 days clonazepam 1 mg PO BID PRN 30 days clonidine HCl 0.2 mg PO TID PRN 30 days dextroamphetamine-amphetamine 30 mg (Adderall) 30 mg PO BID 30 days duloxetine 60 mg PO DAILY 30 days gabapentin 800 mg PO TID 30 days ibuprofen 600 mg PO Q6H PRN insulin glargine (Lantus Solostar U-100 Insulin) 40 units (0.4 mL) subcut BEDTIME 30 days insulin lispro (Humalog U-100 Insulin) See Protocol Inject 2 to 10 units PER SLIDING SCALE subcutaneously 3 times a day before meals; insulin syringe-needle U-100 (BD Insulin Syringe Ultra-Fine) As directed 3 times a day methadone 65 mg PO DAILY nicotine (polacrilex) 2 mg buccal Q1H PRN 30 days Tobacco use date assessed: 08/06/23 Dental Screening Dental Screen Date: 08/06/23 Did you have a dental visit in the last 12 months?: No Did you have a dental problem in the last 6 months where you did not have access to dental care?: No HPI hernia fup + needs PHQ-9+THIRVE HPI Details Patient comes in today for his follow up visit He was last seen by Dr. Hancock in September 2022 for his ventral hernia and was advised to get his labs and abdominal CT done prior to scheduling him for hernia repair but patient still has not gotten these done and has not followed up with surgery again since He has not had any follow up labs done since December 2021 Patient states that he might be moving back to [place] in the next few weeks and needs several of his Rx refilled States that he will pursue his hernia repair and get his labs done when he gets himself settled down in the [place] area after he moves States that he currently feels okay He denies any headaches or dizziness Denies any chest pains, no SOB No nausea/vomiting, no abdominal pain No change in bowel habits noted [facility] Medical History Umbilical hernia Post traumatic stress disorder (PTSD) ADHD (attention deficit hyperactivity disorder) Suicidal ideations Smoker Obesity (BMI 30-39.9) Opioid use disorder Anxiety ADD (attention deficit disorder) Diabetic neuropathy Diabetes mellitus Surgical History H/O knee surgery Family History Mother No problems noted. Father Diabetes Parkinson disease Other Mental health problem Substance abuse Social History Household Members: None Housing: Homeless Do you presently have visiting nurse or other home services: No Alcohol intake: unknown Patient Tobacco Use Status: Current everyday Tobacco user Tobacco use type: Cigarette Cigarette Packs Per Day: 0.25 Cigarettes Per Day: 5.0 Years Smoked: 25 e-Cigarette/Vaping Use: Never Used Second Hand Smoke Exposure: No Substance Use Type: Crack/Cocaine and Heroin service: No Current occupational status: disabled Sexual orientation: Straight/Heterosexual Cognitive needs: No Hearing needs: No Vision needs: Yes Questionnaire PHQ-9 Over the last 2 weeks, how often have you been bothered by any of the following problems? 1. Little interest or pleasure in doing things: more than half the days 2. Feeling down, depressed, or hopeless: more than half the days 3. Trouble falling or staying asleep, or sleeping too much: more than half the days 4. Feeling tired or having little energy: more than half the days 5. Poor appetite or overeating: more than half the days 6. Feeling bad about yourself - or that you are a failure or have let yourself or your family down: more than half the days 7. Trouble concentrating on things, such as reading the newspaper or watching television: more than half the days 8. Moving or speaking so slowly that other people could have noticed. Or the opposite - being so fidgety or restless that you have been moving around a lot more than usual: more than half the days 9. Thoughts that you would be better off or of hurting yourself in some way: not at all Total score: 16 Depression Screening Interpretation: Positive Depression Screening Follow-up: Existing condition and In treatment Depression Screening Done: Yes 75045 - PHQ-9 Billing: Yes Source: Developed by Drs. Wilmer Talbot, Elenita Bey, Parth Sweeney and colleagues, with an educational geovanna from [employer]. Thrive Questionnaire Date Thrive assessed: 08/06/23 I am a: Patient What is your living situation today?: I have a steady place to live Within the past 12 months, did the food you bought not last and you didn't have the money to get more?: Never true Within the past 12 months, did you worry whether your food would run out before you got money to buy more?: Never true Do you have trouble paying for medicines?: No Do you have trouble getting transportation to medical appointments?: No Do you have trouble paying your heating and electricity bill?: No Do you have trouble taking care of your child, family member or friend?: No Do you have trouble with day-to-day activities such as bathing, preparing meals, shopping, managing finances, etc.?: No Are you currently unemployed and looking for a job?: No Are you interested in more education?: No Please select the resources that you would like help with: None Currently or been in a relationship where the following occur: no concerns reported THRIVE Score: 0 AUDIT C Alcohol Use Questionnaire (AUDIT-C) 1. How often do you have a drink containing alcohol?: Never 3. How often do you have six or more drinks on one occasion?: Never Total Score: 0 Score Reviewed/Action Taken: Yes AARON-7 AMB Questionnaire AARON-7 Date AARON - 7 assessed: 08/06/23 Feeling nervous, anxious, or on edge: 2 = More than half the days Not being able to stop or control worryin = More than half the days Worrying too much about different things: 2 = More than half the days Trouble relaxin = More than half the days Being so restless that it is hard to sit still: 2 = More than half the days Becoming easily annoyed or irritable: 2 = More than half the days Feeling afraid as if something awful might happen: 0 = Not at all Total AARON-7 score (0-4 normal; 5-9 mild; 10-14 moderate; 15-21 severe): 12 Source: Developed by Drs. Wilmer Talbot, Elenita Bey, Parth Sweeney and colleagues, with an educational geovanna from [employer]. AARON-7 Assessment Billing AARON-7 Assessment Tool: AARON-7 Assessment 21638 Review of Systems Const Denies chills, Denies fatigue, Denies fever(s) and Denies headache(s) ENT Denies dysphagia, Denies dizziness, Denies otalgia, Denies headache(s), Denies neck pain, Denies odynophagia and Denies sore throat Card Denies chest pain, Denies palpitations and Denies dyspnea Resp Denies cough and Denies dyspnea GI Details: (+) palpable mass on the upper to mid abdominal area Denies abdominal pain, Denies constipation, Denies dysphagia, Denies heartburn, Denies diarrhea, Denies nausea, Denies odynophagia and Denies vomiting Denies dysuria, Denies nocturia and Denies urinary frequency Musc Denies back pain and Denies neck pain Skin/Breast Denies rash Neuro Details: (+) chronic pain in both feet (due to neuropathy) Denies dizziness and Denies headache(s) Psych Reports anxiety and Reports difficulty concentrating Endo Denies fatigue and Denies palpitations Physical exam (Primary Care) Vital Signs: Last Vital Signs Pulse 103 H 08/06/23 14:47 BP 104/86 08/06/23 14:47 Pulse Ox 96 08/06/23 14:47 Oxygen Delivery Method Room Air 08/06/23 14:47 BMI result Body Mass Index 35.7 Tobacco/Smoking Status: Tobacco use Status Tobacco use date assessed 08/06/23 08/06/23 14:48 Patient Tobacco Use Status Current everyday Tobacco 08/06/23 14:48 Tobacco use type Cigarette 08/06/23 14:48 e-Cigarette/Vaping Use Never Used 08/06/23 14:48 PHQ-9: PHQ-9 Score PHQ-9: Total score 16 08/06/23 15:52 Depression Screening Interpretation: Positive Depression Screening Follow-up: Existing condition and In treatment Thrive Assessment: Date of Thrive Assessment Date Thrive assessed 08/06/23 08/06/23 14:48 Currently or been in a relationship where the following occur: no concerns reported Const General: no acute distress and alert HENMT Ears: TM's normal bilaterally and EAC's normal Throat: Yes posterior oropharynx normal and Yes tonsils normal (no TP congestion) Neck Neck: Yes no lymphadenopathy and Yes supple Thyroid: Thyroid normal Resp Auscultation: clear to auscultation bilaterally, no rales and no wheezes Cardio Rate: regular rate Rhythm: regular rhythm Heart sounds: no murmurs GI Palpation (GI): Soft to palpation, nontender and Palpable mass present ((+) large palpable mass over the epigastric / upper abdominal area) Auscultation: normal bowel sounds General: Yes no CVA tenderness Back/Spine/Pelvis Back: no CVA tenderness Thoracic/Lumbar Spine: No lumbar spinal tenderness Skin Rashes: no rashes Extrem General: Yes no clubbing, cyanosis or edema Results AMB Hemoglobin A1c AMB Hemoglobin A1c 9.2 % Last Edit by ROBERTO Noland on 08/06/23 15:04 Results Reviewed Results Reviewed: Laboratory Last Values Hgb A1c (Clinic) 9.2 % (4.0-6.0) H 08/06/23 14:49 Assessment and Plan Assessment & Plan (1) Diabetes mellitus: Code(s): E11.9 - Type 2 diabetes mellitus without complications Qualifiers: Diabetes mellitus type: type 1 Diabetes mellitus complication status: with neurologic complications Diabetes mellitus complication detail: with unspecified neuropathy Qualified Code(s): E10.40 - Type 1 diabetes mellitus with diabetic neuropathy, unspecified Plan: In-office HgbA1c done today is at 9.2% (was at 7.1% when previously checked in December 2021) - goal is <7.0% Patient states that he has been out of his Lantus and insulin syringes for a couple of weeks now and needs them refilled [facility] Reinforced diabetic diet Continue Lantus Solostar 40 units Q HS and Humalog Kwikpen up to 14 units TID with meals per sliding scale He was previously sent for some follow up labs but patient still has not yet been able to get these done - as he is planning on moving to the [facility] in the next few weeks, will not order any more labs on him but he is encouraged to find a new PCP in [place] R[place]AN He was also previously referred to endocrinology for further evaluation and management and was scheduled to see Dr. Saenz on 10/23/2021 but he apparently did not keep his appt. then (2) Diabetic neuropathy: Code(s): E11.40 - Type 2 diabetes mellitus with diabetic neuropathy, unspecified Qualifiers: Diabetes mellitus type: type 1 Diabetes mellitus complication detail: diabetic polyneuropathy Qualified Code(s): E10.42 - Type 1 diabetes mellitus with diabetic polyneuropathy Plan: Continue Gabapentin 800 mg TID and Ibuprofen 600 mg every 6 hours with food as needed (3) Abdominal wall mass: Code(s): R22.2 - Localized swelling, mass and lump, trunk Plan: Possible ventral hernia vs. enlarging diastasis - he was referred to and seen by surgery for this and was advised to get his labs and abdominal CT done prior to being scheduled for surgical repair but patient did not get these done States that he will pursue this again when he moves to and gets settled in the [facility] in the next few weeks (4) Opioid use disorder: Code(s): F11.90 - Opioid use, unspecified, uncomplicated Plan: Continue Methadone 65 mg QD Follow up with the [facility] ([facility]) as scheduled (5) ADD (attention deficit disorder): Code(s): F98.8 - Other specified behavioral and emotional disorders with onset usually occurring in childhood and adolescence Qualifiers: Hyperactivity presence: absent Qualified Code(s): F98.8 - Other specified behavioral and emotional disorders with onset usually occurring in childhood and adolescence Plan: Continue Adderall 30 mg BID (6) Anxiety: Code(s): F41.9 - Anxiety disorder, unspecified Plan: Continue Clonidine 0.2 mg TID PRN and Clonazepam 1 mg BID PRN Patient has declined offer to try him on other medications for his anxiety, including Seroquel and Remeron - states that he has taken Seroquel in the past and this caused him to gain a lot of weight and he prefers not to take any medications that can cause weight gain at this time, including Remeron (7) MDD (major depressive disorder), recurrent, severe, with psychosis: Code(s): F33.3 - Major depressive disorder, recurrent, severe with psychotic symptoms Plan: Continue Aripiprazole 10 mg QD and Duloxetine 60 mg QD (8) Smoker: Code(s): F17.200 - Nicotine dependence, unspecified, uncomplicated Plan: Counseled again on smoking cessation He is currently using Nicotine lozenges 2 mg Q hour PRN (9) Obesity (BMI 30-39.9): Code(s): E66.9 - Obesity, unspecified Plan: Reinforced diet/exercise as tolerated/lose weight Plan Follow up in 3 months IF patient has not moved to [place]; otherwise, no appt needed and he is encouraged to find a PCP in the [facility] RYLAN for follow up of his medical issues Orders: Orders AMB Hemoglobin A1c 08/06/23 E10.40 - Type 1 diabetes mellitus with diabetic neuropathy, unspecified Medications: New insulin syringe-needle U-100 (BD Insulin Syringe Ultra-Fine) As directed 3 times a day 100 ea 5RF E10.40 - Type 1 diabetes mellitus with diabetic neuropathy, unspecified aripiprazole 10 mg PO DAILY 30 days 30 tabs 2RF dextroamphetamine-amphetamine 30 mg (Adderall) administer doses at least 4-6 hours apart; Partial Fill upon patient request. 30 mg PO BID 30 days 60 tabs 0RF Refilled duloxetine 60 mg PO DAILY 30 days 30 caps 2RF gabapentin 800 mg PO TID 30 days 90 tabs 2RF clonazepam 1 mg PO BID 30 days PRN 60 tabs 0RF anxiety F41.9 - Anxiety disorder, unspecified clonidine HCl 0.2 mg PO TID 30 days PRN 90 tabs 2RF anxiety F41.9 - Anxiety disorder, unspecified insulin glargine (Lantus Solostar U-100 Insulin) 40 units (0.4 mL) subcut BEDTIME 30 days 12 mL 3RF E11.9 - Type 2 diabetes mellitus without complications Discontinued Adderall XR 25 mg (dextroamphetamine-amphetamine) Partial Fill upon patient request Discontinued Reason: Patient no longer taking 25 mg PO BID 30 days 60 caps 0RF NS Coding Level of Care Code Est Pt Level 4 (06037) Diagnoses Type 1 diabetes mellitus with diabetic neuropathy E10.40 Diabetes mellitus type: type 1 Diabetes mellitus complication status: with neurologic complications Diabetes mellitus complication detail: with unspecified neuropathy Diabetic polyneuropathy associated with type 1 diabetes mellitus E10.42 Diabetes mellitus type: type 1 Diabetes mellitus complication detail: diabetic polyneuropathy Abdominal wall mass R22.2 Opioid use disorder F11.90 Attention deficit disorder (ADD) without hyperactivity F98.8 Hyperactivity presence: absent Anxiety F41.9 MDD (major depressive disorder), recurrent, severe, with psychosis F33.3 Smoker F17.200 Obesity (BMI 30-39.9) E66.9 Additional Codes AARON-7 Assessment Billing - AARON-7 Assessment Tool: AARON-7 Assessment [id number] ([id number])
== END 2023-08-06 15:33 | disposition home or self-care (01) ==
PROVIDERS: PCP Internal Medicine; Visit Provider Internal Medicine
DX: E10.40 Type 1 diabetes mellitus with diabetic neuropathy, unspecified (principal)
CPT/HCPCS: 83036; 99214